=== PATIENT | male | born 1955 | race Caucasian/White ===

== ENCOUNTER 2024-02-12 12:11 | Emergency (ER) | payer BC, SELFPAY ==
[2024-02-12 12:14] VITALS: BP 162/82
[2024-02-12 12:50] LABS: % Basophils 0.6 % (0-2); % Eosinophils 2.8 % (0-6); % Immature Granulocytes 0.1 % (0-0.5); % Lymphocytes 22.4 % (20.5-51.1); % Monocytes 6.9 % (1.7-9.3); % Neutrophils 67.2 % (42.2-75.2); Absolute Eosinophils 0.2 10^3/uL (0-0.7); Absolute Lymphocytes 1.5 10^3/uL (1.2-3.4); Absolute Monocytes 0.5 10^3/uL (0.1-0.6); Absolute Neutrophils 4.6 10^3/uL (1.4-6.5); Hemoglobin 14.5 g/dL (13.0-18.0); Mean Corp Hgb Conc. 34.5 g/dL (33.0-37.0); Mean Corpuscular Hgb 30.6 pg (27.0-31.0); Mean Corpuscular Volume 88.6 fL (80.0-94.0); Nucleated Red Blood Cells % 0 % (-); Platelet Count 193 10^3/uL (130-400); Red Blood Cell Count 4.74 10^6/uL (4.70-6.10); Red Cell Dist. Width 12.6 % (11.5-14.5); White Blood Cell Count 6.8 10^3/uL (4.8-10.8)
[2024-02-12 12:54] LABS: ALT (SGPT) 45 U/L (0-50); AST (SGOT) 38 U/L (17-59); Albumin 4.5 g/dl (3.5-5.0); Alkaline Phosphatase 48 U/L (38-126); Blood Urea Nitrogen 20 mg/dl (9-20); Calcium 9.4 mg/dl (8.4-10.2); Carbon Dioxide 24 mmol/L (22-30); Chloride 106 mmol/L (98-107); Glucose 108 mg/dl (70-99); Potassium 4.6 mmol/L (3.5-5.1); Sodium 138 mmol/L (135-145); eGFR > 60.00
[2024-02-12 13:06] LABS: Troponin I < 0.012 ng/ml
[2024-02-12 13:24] VITALS: BP 131/77
--- NOTE | 2024-02-12 14:26 | ED.GENMED ---
History of Present Illness
General
Chief Complaint: Fatigue
Source: patient
Exam Limitations: none
Time Seen by Provider: 02/12/24 13:55
History of Present Illness
History of Present Illness:
68-year-old male presents with generalized fatigue palpitations shortness of breath. He notes a headache and generalized myalgias as well. Is been persistent over the past 4 days. He states he feels like he skips a beat every now and then. He
has a history of A-fib status post ablation x 2. He denies measurable fever or chills. No known rash or tick bite. He notes a good appetite. He may not be getting enough to drink.
Past History
Past History
ED Past Medical History: Arrthythmia
ED Past Surgical History: Cardiac (ablation)
Social History
Tobacco: Non-smoker
Alcohol: Occasional
Drug: None
Personal:
Living: with family
Employment: Employed
Family History
Family History: Hypertension; Negative Early CAD
Phy Exam
Physical Exam
Physical Exam:
General: Well-appearing male no acute respiratory distress
HEENT: Normocephalic atraumatic mucosa moist neck is supple TMs normal pupils equal round reactive to light
Heart: Regular rate and rhythm no murmurs
Lungs: Clear no wheeze or rales
Abdomen: Soft nontender nondistended no guarding rebound normal bowel sounds
Extremities: No cyanosis or edema
Neurologic exam: Alert and oriented x 3 no facial asymmetry no drift on exam finger-nose [id number] intact
Skin is warm no rash
Course
Orders/Labs/Results
Orders:
Orders
02/12/24 12:16
Electrocardiogram (*1) Urgent
Reason for Study: Fatigue / Weakness
02/12/24 12:17
EKG- Treatment ONCE
02/12/24 12:21
Complete Blood Count/With Diff Urgent
Comprehensive Metabolic Panel Urgent
Troponin I Urgent
02/12/24 14:23
CR Chest - 2 Views Urgent
Comment:
Reason For Exam: sob
02/12/24 14:24
Add On- LAB Urgent
Tests Added?: lyme progressive
Abnormal Lab Results
02/12/24
12:21
Glucose 108 H mg/dl
(70-99)
02/12/24 12:21
02/12/24 12:21
Vital Signs
Initial and Last Documented VS:
Initial Vital Signs
Temp Pulse Resp BP Pulse Ox
98.8 F 75 16 162/82 98
02/12/24 12:14 02/12/24 12:14 02/12/24 12:14 02/12/24 12:14 02/12/24 12:14
Last Documented Vital Signs
Temp Pulse Resp BP Pulse Ox
98.8 F 76 15 131/73 95
02/12/24 12:14 02/12/24 16:30 02/12/24 16:30 02/12/24 16:00 02/12/24 16:30
MDM/Problems Addressed
Differential Diagnosis Includes:
Fatigue and myalgias. Question viral illness versus dehydration versus volume depletion versus Lyme. He also notes palpitations. No arrhythmias noted on the monitor. Every now and then there is a premature beat on the monitor. Patient has had
symptoms for 4 days with occasional chest tightness. Troponin here is undetectable. No indication for repeat troponin given the duration of symptoms. No PE risk factors. Vital signs are stable.
Patient currently receiving IV fluids. Chest x-ray pending add Lyme test
*Critical Care Note
Total Time (30-74mins, 75-104mins- exclusive of procedures): Not Applicable
Update Note
Update Note:
Workup here essentially unremarkable other than some premature beats on the monitor. Chest x-ray clear Lyme test is pending. Objectively the premature beats on monitor have been absent since administration of IV fluids. Suspect possible volume
depletion. He did have some chest discomfort during the last 4 days with a negative troponin here will do chest pain follow-up. He will receive a call if his Lyme test is positive.
ED Attending Note
-
Portions of this chart may have been created with voice recognition software.� Occasional wrong word or��sound alike� substitutions may have occurred due to the inherent limitations of voice recognition software.
Discharge Plan
Departure
Patient Disposition: Home (Routine Discharge)
Date of Disposition: 02/12/24
Time of Disposition: 16:25
Patient with high blood pressure during this ER visit?: No
Discharge Problem:
Fatigue
Instructions: Fatigue (DC), Chest Pain CBC Follow Up
Prescriptions:
No Action
boron 6 mg Tablet
3 mg PO DAILY
zinc sulfate 25 mg zinc (110 mg) Tablet
2 mg PO DAILY
aspirin 81 mg Tablet,Delayed Release (Dr/Ec)
81 mg PO DAILY
calcium carbonate [Calcium 500] 500 mg calcium (1,250 mg) Tablet
700 mg PO DAILY
omeprazole 20 mg Capsule,Delayed Release(Dr/Ec)
20 mg PO DAILYPRN PRN (Reason: gerd)
glucosamine-chondroitin 500-400 mg Capsule
1 cap PO DAILY
Excedrin Migraine 250-250-65 mg Tablet
1 tab PO DAILYPRN PRN (Reason: headaches)
Burkett 3 Fish Oil 684-1,200 mg Capsule,Delayed Release(Dr/Ec)
1 cap PO DAILY
Thermotabs 287-180-15 mg Tablet
1 tab PO DAILY
cholecalciferol (vitamin D3) [Vitamin D3] 125 mcg (5,000 unit) Tablet
125 mcg PO DAILY
vitamin K2 40 mcg Tablet
100 mcg PO DAILY
magnesium oxide 300 mg magnesium Tablet
300 mg PO DAILY
E-Tuknwj-W-Cysteine Tablets 600 mg tablet
600 mg PO DAILY
Referrals:
Ronaldo Casanova MD [Family Provider] -
Interventions
Interventions:
*Risk Screen - Suicide Last Done: 02/12/24 13:35
*General Assessment Last Done: 02/12/24 13:35
*Neglect/Abuse Screening Last Done: 02/12/24 13:35
ED- Fall Risk Assessment Last Done: 02/12/24 17:07
*ED COVID-19 Vaccine History Last Done: 02/12/24 12:14
*Nursing Disposition Last Done: 02/12/24 17:07
Discharge Date and Time
Discharge Date/Time: 02/12/24 17:08
Print Language: MOHAWK
[2024-02-12 15:27] VITALS: BP 125/68
[2024-02-12 16:00] VITALS: BP 131/73
== END 2024-02-12 17:08 | disposition home or self-care (01) ==
LOC: EMR 12:11
PROVIDERS: Emergency Medicine; EMERGENCY PHYSICIAN Emergency Medicine; FAMILY PHYSICIAN Family Medicine; REFERRING PHYSICIAN Internal Medicine Cardiovascular Disease
DX: R53.83 Other fatigue (principal)
CPT/HCPCS: 99283; 71046; 80053; 84484; 85025; 93005

== ENCOUNTER 2024-05-10 16:16 | Inpatient (IN) | payer BC, SELFPAY ==
[2024-05-10] VITALS (18 sets, daily range): BP systolic 95–151; BP diastolic 64–86; BMI 29.7
[2024-05-10] MEDS: NSS 281 ML IV (13:45)
[2024-05-10] MEDS: HEPARIN 25000 UNITS/250 ML IV ×2 (14:01→22:39)
[2024-05-10] MEDS: NITROLINGUAL SPRAY 1 BOTTLE SL (14:34)
--- NOTE | 2024-05-10 14:34 | PTCARENOTE ---
Pt with 4/10 sharp right chest pain, BP 139/70, 2l nc applied, SL nitro spray given as ordered- see mar
--- NOTE | 2024-05-10 14:40 | PTCARENOTE ---
Pt resting with eyes closed. Arouses easily and reports relief of chest pain.
--- NOTE | 2024-05-10 14:44 | W.PN.CARDCBS ---
Today's Communication / Plan
-
Heparin gtt
PRN SL NTG
[facility] today with high risk PCI LAD
Echo in AM
Impression / Plan
-
This is the H&P summary.
H&P scanned into chart.
PCP: Ronaldo Casanova MD
CDY: Talha Contreras MD
HPI: Patient is a 69-year-old gentleman with history of AFib w/PVI at [facility] (2008), non obstructive CAD on cath (2003), HLD, GERD/Syed's Esophagus, FH CAD (dad had CABG in 60s, brother had stent in 50s), non smoker, social alcohol, active and walks
about 3 miles daily without issue.
Presented to [facility] with 2 week history burning chest pain/chest tightness across chest, progressively worse with increased episodes, associated with SOB but no palps/dizziness. Initial HS troponin 43 with peak at 79. EKG with anterior
ST-T wave changes.
Brought to the lab assistant on 05/10 and found to have calcified 95% ostial LAD lesion with mod non obstructive CAD in RCA.
Maintained on IV Heparin and transferred for high risk PCI involving possible atherectomy or lithotripsy with stenting.
In holding area, pt having 4/10 chest discomfort at rest with relief from SL NTG. The radial access site remains intact and maintained on a pressure bag, arterial BPs in the 140s.
[facility] 05/10/24-
Short LM with calcified distal LM
95% calcified ostial LAD 95%
20-30% distal LCx
20-30% ostial RCA, 40-50% prox and distal RCA
LVGram- anterior HK w/EF 50%
2D Echo 11/05/22- NLVSF, EF 55%, mild MR
IMPRESSION/PLAN:
USA/NSTEMI, peak HS trop 79
prior CAD, non obstructive and medically managed at cath 2003
now with progressive USA and 95% calcified ostial LAD during cath today
still having chest pain at rest and on heparin gtt, responsive to SL NTG
transferred for atherectomy/lithotripsy with stenting
already given aspirin with full dose load at [facility]
Noted iodine allergy but pt denies any reaction with prior caths, only with shrimp/shellfish (hives only, no anaphylaxis/edema)
He was dye prepped this morning, and we will hold off on repeating the prep for now.
Echo from 2022 noted- none recent or done at [facility]- will order for AM
plan pending cath results
cardiac rehab
followup with Dr. Contreras at discharge
HLD- some intolerance to rosuvastatin
taking low dose atorvastatin 5mg- increased to 40mg
will check lipid profile in AM
GERD/BE- PPI
PAF- prior ablation 2008 at [facility]
has had intermittent palps that were identified as NSR w/PACs after multiple Kardia recordings
no evidence of AF
he is not on OAC, but if AF recurs his [id number]=9 and would need anticoagulation
Progress Note - Cia Agent
Subjective
Date of Service: May 10, 2024
Objective
Vital Signs and I&O:
Vital Signs
Temp Pulse Resp BP Pulse Ox
97.6 F 65 19 139/70 98
05/10/24 14:05 05/10/24 14:30 05/10/24 14:30 05/10/24 14:34 05/10/24 14:30
Vital Signs
Temp Pulse Resp BP Pulse Ox
97.6 F 65 19 139/70 98
05/10/24 14:05 05/10/24 14:30 05/10/24 14:30 05/10/24 14:34 05/10/24 14:30
Intake & Output
05/08/24 05/09/24 05/10/24 05/11/24
06:59 06:59 06:59 06:59
Intake Total 300 / 300
Balance 300 / 300
Physical Exam
Physical Exam
AAOx3, MAEE 5/
S1 S2 no murmurs
CTA bilat, non labored
soft abd, + bs
right radial cath site with arterial sheath intact, on armboard, no bleeding/oozing at site, palpable pulse w/good cap refill.
sheath to pressure system
bilat extremities w/palpable distal pulses, no edema
[2024-05-10 16:30] LABS: ACT-LR - POC 364 Seconds (116-155)
--- NOTE | 2024-05-10 17:16 | CONSULT.CT ---
Consultation
-
Date/Time Consultation Requested: 05/10/241709
Date/Time Consultation Performed: 05/10/241714
Requesting Provider: Alonzo ALBARADO
Performing Provider: Mary Jo BROTHERS for Kaden ALBARADO
Reason for Consultation: CABG eval
Patient History
Physicians
Family Physician: Ronaldo Casanova MD
Outpatient Manager Casino: Talha Contreras MD
Inpatient Manager Casino: Zion Rosado MD
History of Present Illness
69-year-old male with past medical history significant for atrial fibrillation s/p PVI at [facility] in 2008, CAD, HLD, GERD/Syed's esophagus presented to [facility] with a 2-week history of burning chest pain and chest tightness associated with
shortness of breath. On Friday, he states that he had multiple episodes of 10 out of 10 chest pain until he finally called EMS. While he was in the ambulance they gave him 1 sublingual nitro where he found relief. He was transferred to [place]
[facility] for a left heart cath. Left heart cath revealed multivessel disease and CT surgery was consulted for surgical evaluation.
Past Medical History
Past Medical History: Arrhythmias (Atrial fibrillation), HTN, Hypercholesterolemia, UT and SOB
Past Surgical History
Past Surgical History: Orthopedic
Pulmonary vein isolation x2
Family History
Family Medical History: CAD (Father, and both brothers had CABGs)
Social History
Alcohol: Occasional (4/week)
Drug: None
Tobacco: Non-Smoker
Personal:
Living: With Spouse
Employment: Retired
Allergies
Allergy/AdvReac Type Severity Reaction Status Date / Time
iodine Allergy Hives Verified 05/10/24 13:31
shellfish derived Allergy Hives Verified 05/10/24 13:31
Home Medications
�Medication �Instructions �Recorded �Confirmed �Type
.Smartcal 1 tab PO DAILY 05/10/24 05/10/24 History
atorvastatin 10 mg tablet 5 mg PO DAILY 05/10/24 05/10/24 History
cholecalciferol (vitamin D3) 50 50 mcg PO DAILY 05/10/24 05/10/24 History
mcg (2,000 unit) capsule (Vitamin
D3)
omega-3 fatty acids-fish oil 684 3 cap PO DAILY 05/10/24 05/10/24 History
mg-1,200 mg capsule,delayed release
omeprazole 20 mg capsule,delayed 20 mg PO DAILY 05/10/24 05/10/24 History
release
pyridoxine (vitamin B6) 50 mg 50 mg PO DAILY 05/10/24 05/10/24 History
tablet
vitamin K2 90 mcg capsule 90 mcg PO DAILY 05/10/24 05/10/24 History
Review of Systems
-
History Source: Patient
General: Reports Fatigue
HEENT: Reports No Symptoms
Respiratory: Reports SOB
Cardiac: Reports Chest Pain and CAD
Abdomen/GI: Reports No Symptoms
: Reports No Symptoms
Musculoskeletal: Reports No Symptoms
Skin: Reports No Symptoms
Neurological: Reports No Symptoms
Vascular: Reports No Symptoms
Physical Exam
Vital Signs
Temp 97.6 F 05/10/24 14:05
Temp route: Temporal 05/10/24 14:05
Pulse 78 05/10/24 15:00
Resp Rate 19 05/10/24 14:30
Blood pressure 129/69 05/10/24 14:39
Blood pressure extremity used: Left upper arm 05/10/24 14:05
Position: Lying 05/10/24 14:05
MAP (cuff-Ky Monitor) 97 05/10/24 13:35
SaO2 94 05/10/24 15:00
Oxygen Mode of Delivery Room air 05/10/24 14:05
Can the patient verbally communicate their pain? Yes 05/10/24 14:39
Pain scale ratin 05/10/24 14:39
Arterial Systolic Pressure 139 05/10/24 15:00
Arterial Diastolic Pressure 74 05/10/24 15:00
MAP (G-Diwi-Mnpfsmx Monitor) 96 05/10/24 15:00
Actual Weight 93.8 kg 05/10/24 13:41
Body Mass Index (BMI) 29.7 05/10/24 13:41
Exam
General: Well Developed, Well Nourished and No Apparent Distress
HEENT: Normocephalic
Respiratory: Clear
Cardiac: S1/S2 and Regular Rhythm
GI: Soft and Non Tender
Rectal: Deferred by Provider
Skin: Warm and Dry
Neuro: AO x 3 and No Motor Deficits
Lymph: No Lymphadenopathy
Psych: Calm
Assessment / Plan
-
69-year-old male with past medical history listed above presents to [facility] from [facility] for a left heart cath. Left heart cath revealed multivessel disease and CT surgery was consulted for surgical evaluation.
#CAD
-Patient's case will be discussed with attending physician. Patient's tentative surgery date will be tomorrow May 11
-Routine preoperative cardiothoracic surgery orders will be initiated.
-STS risk stratification score will be calculated after preoperative testing is complete
-Continue nitroglycerin and heparin gtt per cardiology
--- NOTE | 2024-05-10 17:17 | ITS.CL.CATH ---
[facility] - Catheterization
Cardiac Catheterization
Procedure Report:
CARDIAC CATHETERIZATION REPORT
Date of Procedure: 05/10/2024
Referring: Oscar Middleton M.D.
INDICATION: Non-ST elevation myocardial infarction, ostial LAD disease.
PROCEDURE:
1. Coronary angiography.
2. Successful IVUS of the proximal circumflex and left main coronary artery.
3. Successful IFR of the 50% lesion in the origin of OM1.
4. Successful IFR of the 40% proximal RCA lesion.
ACCESS:
7 Bel[place]ian slender right radial artery.
CATHETERS:
1. 7 Belarusian XB 3.5 guiding catheter.
2. 6 Bel[place]ian JR4 guiding catheter .
HEMODYNAMIC DATA
Weight (kg): 93.8
AO (s/d/x, mmHg): 128/72/97
LV (s/x mmHg): Not obtained.
LEFT VENTRICULOGRAPHY: Not performed.
CORONARY ANGIOGRAPHY
Dominance: Right.
Left Main: Normal size, bifurcating vessel. There is a haziness in the distal left main at the origin of the left anterior descending artery that protrudes into the left main coronary artery.
LAD: Normal size vessel giving rise to 1 significant diagonal. There is a densely calcified, 90-95% lesion in the origin of the LAD which protrudes into the left main coronary artery.
Ramus: Congenitally absent.
Circumflex: Large size, nondominant vessel giving rise to 1 large obtuse marginal. This obtuse marginal subsequently splits into 3 daughter arteries. There is a 50% lesion in the proximal margin of OM1.
RCA: Normal size, dominant vessel. There is a 40% lesion in the proximal vessel.
INTERVENTION(S)
1. Successful IVUS of the proximal circumflex and left main coronary artery.
2. Successful IFR of the 50% proximal OM1 lesion demonstrating occlusive disease (IFR = 0.88).
3. Successful IFR of the 40% proximal RCA lesion demonstrating nonocclusive disease (IFR = 0.95).
Narrative:
The decision was made to perform intracoronary imaging. The 7 Belarusian XB 3.5 guiding catheter was advanced into the ascending aorta and seated in the left main coronary artery. Additional heparin was given to obtain an ACT greater than 250 seconds.
After advancing a power turn flex wire into the distal circumflex, an IVUS catheter was advanced through the guiding catheter and into the ostium of the left main coronary artery. Ring down was performed once the imaging crystal was no longer inside
of the guiding catheter. The IVUS catheter was advanced into the proximal circumflex. Intravascular ultrasound was performed in a retrograde fashion using a slow pullback. Intracoronary imaging demonstrated significant atherosclerotic disease in the
distal left main including protrusion of the ostial LAD lesion into the lumen of the left main. Minimal luminal area of the left main was 7.7 mm�.
At this point, I elected to consult with CT surgery given the bulky nature of the ostial LAD calcium and micro concern for significant plaque shift even with aggressive calcium debulking. In my opinion, there is simply no way that PCI of the ostial
LAD would not intrude on the left main coronary artery and cause significant plaque shift into the ostial circumflex artery, forcing percutaneous rescue of this large vessel. After discussing with Drs. Alfonso and Sera, the decision was made that
the patient would likely benefit from bypass rather than PCI given the ostial nature of the lesion as well as his relatively young age. The decision was made to perform physiologic testing on the circumflex and RCA lesions to clarify the extent of
bypass required and to formally consult the CT surgery service.
The IVUS catheter was removed. An iFR wire was zeroed outside of the body, then inserted into the guiding sheath. The wire was advanced and the transducer was normalized just outside of the guiding catheter tip. The wire was advanced into the mid
OM1, beyond the 50% lesion. Three iFR measurements were taken. The lesion was determined to be occlusive (0.88).
We then turned our attention to the RCA. The 7 Belarusian XB 3.5 guiding catheter was removed over a wire and exchanged for a(n) 6 Bel[place]ian JR4 guiding catheter. The guiding catheter was advanced into the ascending aorta and seated in the right coronary
artery. Additional heparin was given to obtain an ACT greater than 250 seconds. An iFR wire was zeroed outside of the body, then inserted into the guiding sheath. The wire was advanced and the transducer was normalized just outside of the guiding
catheter tip. The wire was advanced into the mid RCA. Three iFR measurements were taken. The lesion was determined to be nonocclusive (0.95).
The catheter was disengaged from the coronary and the IFR wire was removed. The catheter was removed over a standard J-wire.
Closure Device: Vascular band.
Radiation (mGy): 365.68
DAP (cm2.Gy): 33.5095
Fluoroscopy time (minutes): 9.7
Sedation time (minutes): 66
CONCLUSIONS
1. Right dominant circulation with a nonocclusive 40% lesion in the proximal RCA (IFR = 0.95), and occlusive 50% proximal OM1 lesion (IFR = 0.88) and a densely calcified, bulky, critical, 90-95% ostial LAD lesion with intrusion of the calcium into
the distal left main coronary artery (minimal luminal area = 7.7 mm�).
RECOMMENDATIONS:
1. Expectant management after cardiac catheterization via right radial approach.
2. Limited weight bearing on the right wrist for one week.
3. Consultation with CT surgery regarding optimal revascularization strategy.
4. Aggressive secondary prevention with high-dose, high potency statin.
5. If the patient were to develop recurrent chest pain, would treat with nitroglycerin drip.
6. If nitroglycerin drip does not relieve chest pain or if blood pressure will not tolerate, the patient should have an intra-aortic balloon pump placed emergently and CT surgery needs to be made aware.
Copy to: Oscar Middleton M.D., Ronaldo Casanova M.D., Osmani Contreras M.D.
Zion Rosado DO, FACC, FACP
[2024-05-10] MEDS: LIPITOR 80 MG PO (19:13)
[2024-05-10] MEDS: NITROGLYCERIN PREMIX 250 IV (19:13)
[2024-05-10] MEDS: FLUSH (NSS) 1 FLUSH IV (19:16)
[2024-05-10] MEDS: COLACE 100 MG PO (23:26)
[2024-05-11] VITALS (36 sets, daily range): BP systolic 48–156; BP diastolic 40–110; BMI 29.3
--- NOTE | 2024-05-11 00:41 | W.PN.CT ---
Assessment / Plan
-
Assessment:
-S/P Median sternotomy/CABG x 2 (TED to LAD, GSV to OM1)/Endoscopic harvest/prep of RLE GSV/ ELAA w/ 50mm AtriClip, by Dr. Alfonso, 05/11/24, pod#1
-Severe 2v/distal LM CAD
-NSTEMI (HS trop. peaked @ 79)
-USA
-LVEF 55%, Mild MR per echo 11/05/22
-PAF S/P ablation @ [facility]2008
-HLD
-Class 1 obesity (BMI 30)
-GERD/Syed's esophagus
-Acute postop blood loss/Anemia (stable without blood transfusion)
-Acute postop atelectasis
-Acute postop hypovolemia with subsequent hypervolemia
-Acute vasal vagal episode with SBP 50's
Plan:
-No major issues overnight. Hemodynamically and neurologically intact
-Successfully extubated on 05/11/24 @ 2330
-Weaned of Levophed gtt, remains on insulin gtt per protocol
-U/O since OR 920 mL
-Monitor chest tube output: 2 meds 100/100, R/L pleurals 80/80
-Cont. current meds (ASA, Lipitor, Amiodarone, Lopressor; will add Plavix for vein graft; will eventually add DOAC given PAF hx)
-Telemetry phase today once of insulin gtt
-D/C'd a-line and SLIC this AM @ 0530
-No swan
-D/C'd jarrett this AM @ 0600
-Maintain temporary PW (will cut before d/c home)
-Maintain cordis (will d/c on POD#3)
-Wean off of O2 as tolerated
-Encourage use of IS
-OOB into chair/Ambulate
Discussed patient care with: Cardiology, Nursing, Respiratory Therapy, Pharmacy and Care Team
Subjective
Procedure
S/P Median sternotomy/CABG x 2 (TED to LAD, GSV to OM1)/Endoscopic harvest/prep of RLE GSV/ ELAA w/ 50mm AtriClip, by Dr. Alfonso, 05/11/24
-
Date of Service: May 11, 2024
Pt c/o incisional pain, otherwise feels well
Objective Data
Vital Signs
Vital Signs
Temp Pulse Resp BP Pulse Ox
97.6 F 69 16 111/67 94
05/10/24 23:29 05/10/24 23:30 05/10/24 23:29 05/10/24 23:30 05/10/24 23:29
CT Intake/Output/Weight
05/10/24 05/10/24 05/11/24
06:59 18:59 06:59
Intake Total 300 / 560 260 / 560
Output Total 300 / 300
Balance 300 / 260 -40 / 260
SaO2: 94 (2L)
Physical Exam
-
General: Awake, Oriented and AOx3
Cardiovascular: Regular rate & rhythm, No Murmurs, No Rub and No Gallop
Respiratory: Decreased Breath Sounds (at bases, otherwise clear)
Sternum: Stable
Incision: Clean, Dry, Intact and Dressing Intact
Extremities: Other (+trace edema)
Data Reviewed
-
Lab Results: Results Reviewed
Medications: Active Meds Reviewed
Chest X-Ray: Report Reviewed and Image Reviewed
ECG: Report Reviewed and Image Reviewed
[2024-05-11 05:18] LABS: APTT 56.6 Sec (23.4-35.0)
[2024-05-11 05:22] LABS: Hematocrit 36.6 % (39.0-52.0); Mean Corp Hgb Conc. 35.5 g/dL (33.0-37.0); Mean Corpuscular Hgb 30.5 pg (27.0-31.0); Mean Corpuscular Volume 85.9 fL (80.0-94.0); Mean Platelet Volume 9.8 fL (7.4-10.4); Platelet Count 207 10^3/uL (130-400); Red Blood Cell Count 4.26 10^6/uL (4.70-6.10); Red Cell Dist. Width 12.8 % (11.5-14.5); White Blood Cell Count 10.1 10^3/uL (4.8-10.8)
[2024-05-11 05:49] LABS: ALT (SGPT) 43 U/L (0-50); AST (SGOT) 30 U/L (17-59); Albumin 3.8 g/dl (3.5-5.0); Alkaline Phosphatase 65 U/L (38-126); Blood Urea Nitrogen 17 mg/dl (9-20); Calcium 9.1 mg/dl (8.4-10.2); Carbon Dioxide 21 mmol/L (22-30); Chloride 106 mmol/L (98-107); Direct Bilirubin 0.1 mg/dl (0.0-0.4); Estimated Creatinine Clearance 73 ml/min; Glucose 105 mg/dl (70-99); HDL Cholesterol 48 mg/dl; LDL Cholesterol, Calculated 75 mg/dl; Sodium 137 mmol/L (135-145); Total Bilirubin 0.8 mg/dl (0.2-1.3); Total Cholesterol 166 mg/dl (50-199); Total Protein 5.8 g/dl (6.3-8.2); Triglyceride 215 mg/dl (10-149); Very Low Density Lipoprotein 43 mg/dl (0-30); eGFR > 60.00
--- NOTE | 2024-05-11 06:40 | PTCARENOTE ---
1900 pt c/o CP 12/02. Nitro gtt started. Pt reported pain free in the next 15 min and stayed pain free this shift. CHD bath completed. VSS. Safety measures in place
--- NOTE | 2024-05-11 06:49 | W.PN.UPDATE ---
Update Note
Progress Note Update
CARDIAC SURGERY ATTENDING:
It was my pleasure to meet with Mr. Alex Hoang this morning at his bedside. I have reviewed his cardiac catheterization imaging. He will benefit from surgical coronary revascularization. He has a history of atrial fibrillation status post
ablation, I would therefore also advocate for concurrent exclusion of his left atrial appendage. I anticipate CABG x 2-3 with CASTRO to LAD and greater saphenous vein to OM1. His RCA was nonflow limiting on IFR assessment which would argue against
bypass to this vessel, but I will discuss this further with my interventional cardiology colleague.
I had a long conversation with Mr. Hoang. We discussed his coronary pathology, the proposed operative interventions, the associated operative risks (including, but not limited to, , stroke, RI, arrhythmia, PNA, GIA/F, bleeding, and infection),
the expected in-hospital postprocedural course, and the expected outpatient recovery. All questions were answered to the best of my abilities. The patient is agreeable to proceed. He recorded our conversation for the benefit of his .
He has been scheduled for operative intervention this afternoon pending completion of his preoperative workup.
Thank you for the opportunity to participate in the care of this kind gentleman.
Gerardo Alfonso MD
[phone]
[2024-05-11] MEDS: LOW STRENGTH ASPIRIN 81 MG PO (07:49)
[2024-05-11] MEDS: PROTONIX PO (07:50)
[2024-05-11 09:29] LABS: Glycohemoglobin (HgbA1c) 5.2 % (4.0-5.6)
--- NOTE | 2024-05-11 09:31 | PTCARENOTE ---
Assumed care at 0700. Patient awake in chair, NPO except sips with meds. Heparin and nitro infusing, denies pain, VSS, call joiner in reach
--- NOTE | 2024-05-11 09:57 | CM ---
Reviewed chart. Met with Mr. Hoang to review discharge plans. He states prior to admission he resides with his spouse and his thirteen year old granddaughter in a two story home with two steps to enter. He states his son's family has moved in them
while he is renovating a old farm house. He states he has a full flight of steps to get to bedroom/full bathroom. He states he has a powder room on the first floor. He states prior to admission he was independent with ambulation and adls. He
states he does not have any DME in the home. He states he has a prescription plan and uses [email or web address]. He states his spouse works outside the home but his son will be home to assist in his care if needed. He has a wedding in [place] on
June 17, 2024 that he would like to go to. Medical work-up in progress. The discharge plan is to return home with his spouse and son and a home visit by the Cardiothoracic Transitional Care Nurse when medically stable.
We reviewed pre-op and post-op routines. We briefly reviewed the shower instructions. Also reviewed restrictions including sternal precautions and driving restrictions. Also discussed a home visit by the Cardiothoracic Transitional Care Nurse. He
is agreeable to a home visit. The plan is for CABG on Saturday, May 11, 2024.
--- NOTE | 2024-05-11 10:01 | W.PN.UPDATE ---
Update Note
Progress Note Update
Procedure Type:�Isolated CABG
PERIOPERATIVE OUTCOME ESTIMATE %
Operative Mortality 0.659%
Morbidity & Mortality 3.82%
Stroke 0.728%
Renal Failure 0.577%
Reoperation 1.68%
Prolonged Ventilation 1.84%
Deep Sternal Wound Infection 0.102%
Long Hospital Stay (>14 days) 1.82%
Short Hospital Stay (<6 days)* 67.5%
Clinical Summary
Planned Surgery: Isolated CABG, Urgent, First cardiovascular surgery
Demographics: 69 year old, White, male, 94kg, 178cm, BMI: 29.7 kg/m�
Lab Values: Creatinine: 1 mg/dL, Hematocrit: 36.6%, WBC Count: 10.1 10�/�L, Platelet Count: 481213 cells/�L
Substance Abuse: Never smoker, Alcohol use: 2-7 drinks/week
Risk Factors / Comorbidities: Hypertension, Family Hx of CAD
Cardiac Status: Ejection Fraction = 55%
Coronary Artery Disease: 2 vessels diseased, Proximal LAD Stenosis >=70%, Non-ST Elevation HI, HI: 8 to 21 Days
Valve Disease: Mild MR, Trivial/Trace TR
[2024-05-11 10:15] LABS: INR 1.11; PT 14.1 Sec (11.4-14.6)
--- NOTE | 2024-05-11 11:21 | PTCARENOTE ---
Patient shower with 4% CHG. Patient placed in CVOR bed.
[2024-05-11 12:12] LABS: INR 1.14; PT 14.5 Sec (11.4-14.6)
[2024-05-11 12:13] LABS: APTT 63.4 Sec (23.4-35.0)
--- NOTE | 2024-05-11 12:38 | W.PN.CD ---
Today's Communication / Plan
-
Chestpain free.
plan for CABG. Timing per CT surgery
Impression / Plan
-
This is the H&P summary.
H&P scanned into chart.
PCP: Ronaldo Casanova MD
CDY: Talha Contreras MD
69-year-old gentleman with history of AFib w/PVI at [facility] (2008), non obstructive CAD on cath (2003), HLD, GERD/Syed's Esophagus,
Presented to [facility] with 2 week history burning chest pain/chest tightness across chest, progressively worse with increased episodes, associated with SOB but no palps/dizziness. Initial HS troponin 43 with peak at 79. EKG with anterior
ST-T wave changes.
Brought to the flue dust laborer on 05/10 and found to have calcified 95% ostial LAD lesion with mod non obstructive CAD in RCA.
Maintained on IV Heparin and transferred for high risk PCI involving possible atherectomy or lithotripsy with stenting.
C 05/10/24-
Short LM with calcified distal LM
95% calcified ostial LAD 95%
20-30% distal LCx
20-30% ostial RCA, 40-50% prox and distal RCA
LVGram- anterior HK w/EF 50%
2D Echo 11/05/22- NLVSF, EF 55%, mild MR
IMPRESSION/PLAN:
USA/NSTEMI, peak HS trop 79
based on anatomy . CABG recommended and CT surgery consulted
CT sugery evaluation in progress
CAbg in afternoon 05/11/24
HLD- some intolerance to rosuvastatin
taking low dose atorvastatin 5mg- increased to 40mg
\\
GERD/BE- PPI
PAF- prior ablation 2008 at [facility]
has had intermittent palps that were identified as NSR w/PACs after multiple Kardia recordings
no evidence of AF
hmitor for afib post op
Physical Exam
Vital Signs/Labs
Vital Signs
Temp Pulse Resp BP Pulse Ox
98.2 F 80 16 118/74 94
05/11/24 11:47 05/11/24 11:45 05/11/24 11:47 05/11/24 11:23 05/11/24 11:47
05/10/24 05/11/24 05/12/24
06:59 06:59 06:59
Actual Weight 92.7 kg
05/11/24 04:55
05/11/24 04:55
PT 14.5 Sec (11.4-14.6) 05/11/24 11:44
INR 1.14 05/11/24 11:44
APTT 63.4 Sec (23.4-35.0) H 05/11/24 11:44
APTT Cancelled 05/11/24 11:44
Triglycerides 215 mg/dl (10-149) H 05/11/24 04:55
LDL Cholesterol, Calc 75 mg/dl 05/11/24 04:55
VLDL Cholesterol, Calc 43 mg/dl (0-30) H 05/11/24 04:55
HDL Cholesterol 48 mg/dl 05/11/24 04:55
Physical Exam
Constitutional: No acute distress
Cardiovascular: Rhythm & rate is regular
GI: Soft
Neuro/Psych: Alert
Other: Cath Site (right radil fine)
Data Reviewed
-
Date of Service: May 11, 2024
Medical Decision Making: Reviewed Test Results
X-Ray/CT/US/MRI/NUC/PET: Report Reviewed by me
Medical Tests (PFT, Pathology etc): Report Reviewed by me
[2024-05-11] MEDS: BACTROBAN 2% OINTMENT 1 APPLIC NASAL ×2 (13:20→20:44)
[2024-05-11] MEDS: PROTONIX 40 MG PO (13:21)
[2024-05-11] MEDS: LOPRESSOR 25 MG PO (13:21)
[2024-05-11] MEDS: MAGNESIUM OXIDE 500 MG PO (13:21)
--- NOTE | 2024-05-11 13:29 | PTCARENOTE ---
2% CHG wipes completed, meds given with a sip of water.
--- NOTE | 2024-05-11 13:57 | PTCARENOTE ---
Patient transported to the OR. Heparin stopped, Nitroglycerin at 5mcg/min infusing.
[2024-05-11 14:50] LABS: ACT+ - POC 93 Seconds (82-134)
[2024-05-11 15:07] LABS: Urine Albumin Negative (Neg - Trace); Urine Bilirubin Negative (Negative); Urine Character Clear (Clear); Urine Color Yellow; Urine Glucose Negative (Negative); Urine Ketone Negative (Negative); Urine Leukocyte Negative (Negative); Urine Nitrite Negative (Negative); Urine Occult Blood Negative (Negative); Urine Specific Gravity 1.015 (<1.030); Urine Urobilinogen Negative (Neg - 1+); Urine pH 6.5 (5.0-9.0)
--- NOTE | 2024-05-11 15:07 | CM ---
Chart reviewed. Patient is in the OR today. Patient is independent of ADLS, lives with his and granddaughter, also his son and family are currently staying with the patient in a 2 STH, 2 YASMANI, 0 DME. Plan is for the patient to return home
with CT Transitional RN. CM to follow
[2024-05-11 16:37] LABS: ACT+ - POC 455 Seconds (82-134)
[2024-05-11 16:55] LABS: B.E. - POC -2.2 mmol/L; Glucose - POC 102 mg/dl (70-99); HCO3 - POC 23 mmol/L (21-29); Hematocrit - POC 35 % PCV (42-52); Hemodilution- POC No; Hemoglobin Calculated - POC 11.7; Ionized Calcium - POC 1.17 mmol/L (1.12-1.27); O2 Saturation %Calculated-POC 99.8 5 (92-96); PCO2 - POC 39 mmHg (35-45); PO2 - POC 224 mmHg (80-100); POC Comment PRE; Potassium - POC 3.8 mmol/L (3.6-5.0); Sodium - POC 140 mmol/L (135-145); pH - POC 7.38 (7.35-7.45)
[2024-05-11 17:06] LABS: ACT+ - POC 402 Seconds (82-134)
[2024-05-11 17:23] LABS: ACT+ - POC 494 Seconds (82-134)
[2024-05-11 17:46] LABS: B.E. - POC 1.1 mmol/L; Glucose - POC 134 mg/dl (70-99); HCO3 - POC 26 mmol/L (21-29); Hematocrit - POC 32 % PCV (42-52); Hemodilution- POC Yes; Hemoglobin Calculated - POC 10.8; Ionized Calcium - POC 1.03 mmol/L (1.12-1.27); O2 Saturation %Calculated-POC 99.9 5 (92-96); PCO2 - POC 41 mmHg (35-45); PO2 - POC 265 mmHg (80-100); POC Comment CPB; Potassium - POC 5.1 mmol/L (3.6-5.0); Sodium - POC 137 mmol/L (135-145); pH - POC 7.41 (7.35-7.45)
[2024-05-11 18:12] LABS: ACT+ - POC 454 Seconds (82-134)
[2024-05-11 18:14] LABS: B.E. - POC 0.2 mmol/L; Glucose - POC 160 mg/dl (70-99); HCO3 - POC 25 mmol/L (21-29); Hematocrit - POC 34 % PCV (42-52); Hemodilution- POC Yes; Hemoglobin Calculated - POC 11.4; Ionized Calcium - POC 1.08 mmol/L (1.12-1.27); O2 Saturation %Calculated-POC 99.9 5 (92-96); PCO2 - POC 42 mmHg (35-45); PO2 - POC 285 mmHg (80-100); POC Comment REWARM; Potassium - POC 5.2 mmol/L (3.6-5.0); Sodium - POC 139 mmol/L (135-145); pH - POC 7.39 (7.35-7.45)
[2024-05-11 18:20] LABS: ACT+ - POC 112 Seconds (82-134)
[2024-05-11 18:41] LABS: B.E. - POC -2.8 mmol/L; Glucose - POC 143 mg/dl (70-99); HCO3 - POC 22 mmol/L (21-29); Hematocrit - POC 31 % PCV (42-52); Hemodilution- POC Yes; Hemoglobin Calculated - POC 10.7; Ionized Calcium - POC 1.36 mmol/L (1.12-1.27); PCO2 - POC 36 mmHg (35-45); PO2 - POC 378 mmHg (80-100); POC Comment POST; Potassium - POC 4.7 mmol/L (3.6-5.0); Sodium - POC 139 mmol/L (135-145); pH - POC 7.39 (7.35-7.45)
--- NOTE | 2024-05-11 19:12 | W.IMMPOSTOP ---
Surgical Immed Post Op Note
-
[id number]
CARDIAC SURGERY OPERATIVE NOTE:
Preoperative Dx:
Severe 2V CAD including ostial LAD Dz w/ NSTEMI
Hx of AF
Postoperative Dx:
Same
Procedures:
1) Median sternotomy
2) Endoscopic harvest/prep of RLE GSV
3) Takedown of TED (narrow pedicle)
4) CABG x 2 (TED to LAD, GSV to OM1)
5) ELAA w/ 50mm AtriClip
Surgeon:
Gerardo Alfonso M.D.
Funeral Home Manager:
Samantha Wild P.A.-C.; endoscopic harvest/prep of RLE GSV; sales support assistant throughout
Anesthesia:
Chuy Sanchez M.D. and Carolyn CamachoN.A.
Perfusion:
Robbie Paredes C.C.P.; XC: 65min, CPB: 74min
Findings:
1) TED was a very healthy vessel w/ extremely brisk blood flow; ELD 2.75mm
2) GSV was a healthy conduit w/ ELD 3.0mm; healthy agosto
3) LAD was visible on the epicardial surface, mild scattered calcifications, ELD at midpoint anatomosis 2.00mm (anastomosis performed over 1.5mm shunt)
4) OM1 was visible on the epicardial surface, minor scattered calcifications, ELD 2.50mm
5) HIWOT was of windsock morphology w/ wide base - closed at base w/ 50mm AtriClip - confirmed w/ ELENA assessment
6) Pt. w/ christianity of NSR w/ cross-clamp in place w/ only TED-to-LAD flow
7) Excellent flow in GSV to OM1 on transit-time U/S flow probe assessment
Complications:
None
Transfusions:
None
Implants:
CT x 4 (B/L pleural, inferior mediastinal, superior mediastinal)
Sternal wires x 8
Sternal 'X' plate and 8 - 14mm screws
Condition:
71 sinus w/ isoelectric STs; 123/80; CVP 18, 98%
GTTS: levophed 4, precedex 0.5, insulin 1
Stable/guarded to CVICU
[2024-05-11] MEDS: NEURONTIN PO ×2 (19:19→21:22)
[2024-05-11] MEDS: TYLENOL PO ×2 (19:19→21:22)
[2024-05-11] MEDS: PACERONE PO ×2 (19:19→21:22)
[2024-05-11] MEDS: LIPITOR PO (19:19)
[2024-05-11 19:57] LABS: Glucose - Point of Care 150 mg/dl (70-99)
[2024-05-11 20:00] LABS: B.E. -2.5 mmol/L; HCO3 22.5 mmol/L (21-28); Ionized Calcium 1.14 mMOL/L (1.15-1.33); O2 Saturation % 99.7 % (94-98); PCO2 39 mmHg (35-48); PO2 263 mmHg (83-108); Potassium 4.2 mMOL/L (3.5-5.1); Sodium 135 mMOL/L (136-145); pH 7.37 (7.35-7.45)
[2024-05-11 20:02] LABS: Hematocrit 33.5 % (39.0-52.0); Hemoglobin 12.1 g/dL (13.0-18.0); Platelet Count 192 10^3/uL (130-400)
[2024-05-11 20:03] LABS: Mixed Venous O2 Saturation 81.1 %
[2024-05-11] MEDS: VERSED 0.5 MG IV (20:15)
--- NOTE | 2024-05-11 20:15 | PTCARENOTE ---
Pt to room 2260 from CVOR ~1945. Pt intubated and sedated upon arrival to CVICU. SR on the monitor. HR 80s. BP 100s/60s. CVP ~4-10. Palpable pulses throughout. No edema. Pt intubated w/ ETT #8, 24 cm @ right lip. Pt at 100% FiO2. POX 98%. See
worklist for full vent settings. Lung sounds audible throughout. Mediastinal CTx2 and R/L pleural CT to -20 suction, no tidaling or air-leak noted at this time, and output WNL. Pt abdomen round/soft. Hypoactive BS. Temperature sensing Maharaj catheter
CDI and draining yellow urine. Sternal Aquacel CDI. Right leg SVG site intact and wrapped in JACQUELINE bandage. Right groin puncture site approximated and DIRECTOR HAIR. CT dressing CDI. Right IJ cordis w/ slick CDI. Left PIV and left radial arterial line CDI. CVP
and a-line leveled, zeroed, and flushed. Insulin, levo, and Precedex infusing upon arrival to CVICU. Ordered labs drawn and sent. EKG obtained. Maharaj care completed. Mouth care completed. See worklist for full nursing assessment and interventions.
[2024-05-11 20:16] LABS: INR 1.27; PT 15.7 Sec (11.4-14.6)
[2024-05-11 20:18] LABS: Blood Urea Nitrogen 15 mg/dl (9-20); Estimated Creatinine Clearance 73 ml/min; Glucose 151 mg/dl (70-99); Magnesium 2.6 mg/dl (1.6-2.3)
[2024-05-11] MEDS: ANCEF 10 IV ×2 (20:20)
[2024-05-11] MEDS: NSS 500 IV (20:20)
[2024-05-11] MEDS: SENOKOT-S PO (20:44)
[2024-05-11] MEDS: CALCIUM CHLORIDE 10% SYRINGE 500 MG IV ×4 (20:45→20:48)
--- NOTE | 2024-05-11 21:00 | PTCARENOTE ---
Pt beginning to slowly wake up. Pt vagaled w/ BP dropping to the 50-60s/40s. CTPA at bedside. Pt administered a total of 2 g calcium chloride and 1 amp sodium bicarb - see OCT. Levo titrated up. BP began to increase and stabilize. Levo titrated back
down. HR remained in the 80s, and POX remained between 94-97% throughout vagal episode. Respiratory at the beside. FiO2 titrated to 40%.
[2024-05-11 21:04] LABS: Glucose - Point of Care 148 mg/dl (70-99)
[2024-05-11 22:07] LABS: Glucose - Point of Care 125 mg/dl (70-99)
[2024-05-11] MEDS: SODIUM BICARBONATE 50 MEQ IV (22:41)
[2024-05-11 22:59] LABS: Glucose - Point of Care 117 mg/dl (70-99)
[2024-05-11 23:18] LABS: B.E. -0.5 mmol/L; HCO3 23.1 mmol/L (21-28); Ionized Calcium 1.35 mMOL/L (1.15-1.33); O2 Saturation % 99.1 % (94-98); PCO2 34 mmHg (35-48); PO2 118 mmHg (83-108); Potassium 4.3 mMOL/L (3.5-5.1); Sodium 136 mMOL/L (136-145); pH 7.44 (7.35-7.45)
[2024-05-11 23:21] LABS: Hematocrit 33.7 % (39.0-52.0); Hemoglobin 12.5 g/dL (13.0-18.0); Platelet Count 217 10^3/uL (130-400)
[2024-05-11] MEDS: OFIRMEV 100 IV (23:49)
--- NOTE | 2024-05-11 23:58 | PTCARENOTE ---
Pt placed on CPAP by respiratory therapy ~ 2240. ABG drawn and sent ~2315. CTPA gave order to extubate. Pt extubated by respiratory therapy to 6 L NC. POX 98%. IS 1500. Pt AAOx3. CARTER. Following commands appropriately.
[2024-05-12] VITALS (45 sets, daily range): BP systolic 80–135; BP diastolic 56–82; PULSE 94; O2SAT 93–95; BMI 29.8; BMI 29.5
[2024-05-12 00:08] LABS: Glucose - Point of Care 91 mg/dl (70-99)
[2024-05-12] MEDS: ANCEF 5 IV ×3 (00:13→17:26)
[2024-05-12] MEDS: LOW STRENGTH ASPIRIN 81 MG PO ×2 (00:13→08:51)
[2024-05-12] MEDS: NOVOLIN R INSULIN INFUSION 100 IV (00:29)
[2024-05-12] MEDS: DILAUDID 0.25 MG IV ×2 (00:36→20:31)
--- NOTE | 2024-05-12 00:37 | PTCARENOTE ---
Addendum entered by Halley King RN 05/12/24 04:10:
Levo infusing per protocol. Glycemic protocol followed.
Original Note:
Pt reassessed. Pt AAOx3. Pt SR on the tele monitor. HR 90s. BP 110's/60s. CVP ~ 1-4. Pt on 6 L NC. POX 99%. Mediastinal CTx2 and R/L pleural CT to -20 suction, no airleak or tidaling noted at this time, and output WNL. Deep breathing encouraged.
Maharaj catheter CDI and draining yellow urine. All surgical sites stable. SLICC (w/ CVP) and left radial arterial line maintained. All lines leveled, zeroed, and flushed. Pt repositioned in bed. See MAR for pain medication administration. Call joiner
within reach.
[2024-05-12] MEDS: ZOFRAN 4 MG IV (00:49)
[2024-05-12] MEDS: DILAUDID 0.5 MG IV (03:27)
[2024-05-12 03:42] LABS: Ionized Calcium 1.22 mMOL/L (1.15-1.33)
[2024-05-12 03:45] LABS: B.E. -2.1 mmol/L; HCO3 22.3 mmol/L (21-28); Hematocrit 32.1 % (39.0-52.0); Hemoglobin 11.7 g/dL (13.0-18.0); Ionized Calcium 1.24 mMOL/L (1.15-1.33); Mean Corp Hgb Conc. 36.4 g/dL (33.0-37.0); Mean Corpuscular Hgb 31.1 pg (27.0-31.0); Mean Corpuscular Volume 85.4 fL (80.0-94.0); Mean Platelet Volume 9.7 fL (7.4-10.4); O2 Saturation % 99.1 % (94-98); O2 Therapy 2L; PCO2 36 mmHg (35-48); PO2 103 mmHg (83-108); Platelet Count 185 10^3/uL (130-400); Red Blood Cell Count 3.76 10^6/uL (4.70-6.10); Red Cell Dist. Width 12.5 % (11.5-14.5); White Blood Cell Count 16.9 10^3/uL (4.8-10.8)
[2024-05-12 03:58] LABS: Glucose - Point of Care 115 mg/dl (70-99)
[2024-05-12] MEDS: SODIUM BICARBONATE 50 MEQ IV (04:15)
[2024-05-12 04:19] LABS: Blood Urea Nitrogen 17 mg/dl (9-20); Calcium 9.3 mg/dl (8.4-10.2); Carbon Dioxide 23 mmol/L (22-30); Chloride 106 mmol/L (98-107); Estimated Creatinine Clearance 66 ml/min; Glucose 114 mg/dl (70-99); Magnesium 2.2 mg/dl (1.6-2.3); Potassium 4.2 mmol/L (3.5-5.1); Sodium 140 mmol/L (135-145); eGFR > 60.00
--- NOTE | 2024-05-12 04:24 | PTCARENOTE ---
Pt reassessed. Remains SR on the tele monitor. HR 90s. BP 90-100s/60s. Levo infusing per protocol. CVP ~2-6. Pt on 2 L NC. POX 96%. CT assessment unchanged from previous. Maharaj catheter CDI and draining yellow urine. All surgical sites stable. SLICC
and left radial a-line maintained. All lines leveled, zeroed, and flushed. Glycemic protocol followed. Pt c/o pain - see OCT. Labs drawn and sent. EKG obtained. Sodium bicarb administered as ordered. Call joiner within reach.
--- NOTE | 2024-05-12 05:14 | DOWNTIME ---
There was a [employer] Client Manager Floral Downtime on 05/12/2024 from 0100 to 05/12/2024 at 0300. Downtime documentation of patient's care, including medication administrations, has been reconciled in the electronic record per guidelines. Refer to the
patient's paper chart under the miscellaneous tab to see printed paper medication records and downtime forms.
[2024-05-12 06:04] LABS: Glucose - Point of Care 127 mg/dl (70-99)
[2024-05-12] MEDS: TYLENOL 1000 MG PO ×3 (06:04→22:30)
--- NOTE | 2024-05-12 06:18 | W.PN.CT ---
Addendum entered and electronically signed by Gerardo Alfonso MD 05/12/24 07:14:
I saw and examined the patient.
The PA's note was reviewed and I agree with the note.
Comment:
Postop day #1 status post CABG x 2
Doing well, successfully extubated at 2330 hrs.
De-line this morning.
Maintain chest tubes today
Maintain Farias catheter until out of bed
Aspirin/Plavix
Out of bed, I-S, ambulate later
Original Note:
Today's Communication / Plan
-
Plan:
-No major issues overnight. Hemodynamically and neurologically intact
-Successfully extubated on 05/11/24 @ 2330
-Weaned of Levophed gtt, remains on insulin gtt per protocol
-U/O since OR 920 mL
-Monitor chest tube output: 2 meds 100/100, R/L pleurals 80/80
-Cont. current meds (ASA, Lipitor, Amiodarone, Lopressor; will add Plavix for vein graft; will eventually add DOAC given PAF hx)
-Telemetry phase today once of insulin gtt
-D/C'd a-line and SLIC this AM @ 0615
-No swan
-D/C'd farias later today
-Maintain temporary PW (will cut before d/c home)
-Maintain cordis (will d/c on POD#3)
-Wean off of O2 as tolerated
-Encourage use of IS
-OOB into chair/Ambulate
Assessment / Plan
-
Assessment:
-S/P Median sternotomy/CABG x 2 (TED to LAD, GSV to OM1)/Endoscopic harvest/prep of RLE GSV/ ELAA w/ 50mm AtriClip, by Dr. Alfonso, 05/11/24, pod#1
-Severe 2v/distal LM CAD
-NSTEMI (HS trop. peaked @ 79)
-USA
-LVEF 55%, Mild MR per echo 11/05/22
-PAF S/P ablation @ [facility]2008
-HLD
-Class 1 obesity (BMI 30)
-GERD/Syed's esophagus
-Acute postop blood loss/Anemia (stable without blood transfusion)
-Acute postop atelectasis
-Acute postop hypovolemia with subsequent hypervolemia
-Acute vasal vagal episode with SBP 50's
Discussed patient care with: Cardiology, Nursing, Respiratory Therapy, Pharmacy and Care Team
Subjective
Procedure
S/P Median sternotomy/CABG x 2 (TED to LAD, GSV to OM1)/Endoscopic harvest/prep of RLE GSV/ ELAA w/ 50mm AtriClip, by Dr. Alfonso, 05/11/24
-
Date of Service: May 12, 2024
C/o incisional pain, otherwise feels well
Objective Data
-
Lab Results
05/12/24 03:34
05/12/24 03:34
PT 15.7 Sec (11.4-14.6) H 05/11/24 19:52
INR 1.27 05/11/24 19:52
APTT 29.0 Sec (23.4-35.0) 05/11/24 19:52
Vital Signs
Vital Signs
Temp Pulse Resp BP Pulse Ox
99.9 F 96 18 104/71 97
05/12/24 06:00 05/12/24 06:00 05/12/24 06:00 05/12/24 06:00 05/12/24 06:00
CT Intake/Output/Weight
05/11/24 05/11/24 05/12/24
06:59 18:59 06:59
Intake Total 260 / 560 381.5 / 381.5
Output Total 600 / 600 1195 / 1195
Balance -340 / -40 -813.5 / -813.5
SaO2: 97 (2L)
Physical Exam
-
General: Awake, Oriented and AOx3
Cardiovascular: Regular rate & rhythm, No Murmurs, No Rub and No Gallop
Respiratory: Decreased Breath Sounds (at bases, otherwise clear)
Sternum: Stable
Incision: Clean, Dry, Intact and Dressing Intact
Extremities: No Edema
Data Reviewed
-
Lab Results: Results Reviewed
Medications: Active Meds Reviewed
Chest X-Ray: Report Reviewed and Image Reviewed
ECG: Report Reviewed and Image Reviewed
--- NOTE | 2024-05-12 06:43 | PTCARENOTE ---
Pt left radial arterial line/SLICC dc'd and farias remains in place per CTPA.
--- NOTE | 2024-05-12 07:18 | PTCARENOTE ---
Attempted to get pt OOB. BP 80/56 while sitting at edge of bed. Pt laid back down. BP up to 120/74. Bed weight obtained.
--- NOTE | 2024-05-12 07:37 | CON.INTV ---
Consultation
Consultation Request
Date/Time Consultation Requested: 05/12/2024-7 AM
Date/Time Consultation Performed: 05/12/2024-7:30 AM
Requesting Provider: Cardiovascular surgery
Performing Provider: Dr. Branch
Reason for Consultation: Postop ventilator/critical care management
Medical History
-
Chief Complaint: CAD
History of Present Illness:
69-year-old male with a history of atrial fibrillation status post PVI at [facility] in 2008, hyperlipidemia, GERD, CAD, and untreated YVONNE. History of 2 weeks of chest burning and tightness associate with shortness of breath who underwent cardiac
catheterization found to have significant CAD and underwent CABG-traffic operations manager consulted for postoperative ventilator/critical care management 05/12/2024. Patient was seen postoperatively. He was successfully extubated. He has some incisional pain.
He has mild shortness of breath. He offers no complaints of pleurisy, productive cough, chest congestion, abdominal pain, nausea, vomiting, leg swelling or weakness.
Past Medical History
Past Medical History: None (Hypertension. Hyperlipidemia. Atrial fibrillation/PVI-[facility] 2008. CAD. GERD. Syed's esophagus. Orthopedic surgery.)
Social History
Tobacco: Non-smoker
Alcohol: Occasional
Drug: None
Personal:
Living: With Family
Occupational Exposures: No known asbestos exposure
Environmental Exposures: No known tuberculosis exposure
Family History
Family History: Other (Father and both brothers with CAD)
Allergies / Home Medications
Allergies
Allergy/AdvReac Type Severity Reaction Status Date / Time
iodine Allergy Hives Verified 05/10/24 13:31
shellfish derived Allergy Hives Verified 05/10/24 13:31
Home Medications
�Medication �Instructions �Recorded �Confirmed �Last Taken �Type
.Smartcal 1 tab PO DAILY 05/10/24 05/10/24 05/06/24 08:00 History
atorvastatin 10 mg tablet 5 mg PO DAILY 05/10/24 05/10/24 05/05/24 08:00 History
cholecalciferol (vitamin D3) 50 50 mcg PO DAILY 05/10/24 05/10/24 05/03/24 08:00 History
mcg (2,000 unit) capsule (Vitamin
D3)
omega-3 fatty acids-fish oil 684 3 cap PO DAILY 05/10/24 05/10/24 05/06/24 08:00 History
mg-1,200 mg capsule,delayed release
omeprazole 20 mg capsule,delayed 20 mg PO DAILY 05/10/24 05/10/24 05/06/24 08:00 History
release
pyridoxine (vitamin B6) 50 mg 50 mg PO DAILY 05/10/24 05/10/24 05/06/24 08:00 History
tablet
vitamin K2 90 mcg capsule 90 mcg PO DAILY 05/10/24 05/10/24 05/06/24 08:00 History
Review of Systems
-
Unable to Obtain full review of systems at this time due to: Other (Per HPI)
Vitals / Labs / Diagnostic Testing
Vital Signs
Temp Pulse Resp BP Pulse Ox
99.9 F 96 16 120/74 96
05/12/24 06:00 05/12/24 07:11 05/12/24 07:00 05/12/24 07:11 05/12/24 07:00
Lab Data
05/12/24 03:34
05/12/24 03:34
Laboratory Results
05/11/24 05/11/24 05/11/24
04:55 11:44 11:44
PT 14.1 14.5
INR 1.11 1.14
APTT 63.4 H Cancelled
pH
pCO2
pO2
HCO3
O2 Delivery Level
05/11/24 05/11/24 05/11/24
17:30 19:52 23:13
PT 15.7 H
INR 1.27
APTT Cancelled 29.0
pH 7.37 7.44
pCO2 39 34 L
pO2 263 H 118 H
HCO3 22.5 23.1
O2 Delivery Level
05/12/24
03:34
PT
INR
APTT
pH 7.40
pCO2 36
pO2 103
HCO3 22.3
O2 Delivery Level 2l
Diagnostic Testing:
Physical Exam
-
Exam:
Well-nourished and well-developed in no apparent distress
HEENT-atraumatic, normocephalic
Neck-supple, no JVD, no bruit
Heart-regular rate and rhythm-no murmurs, rubs or gallops
Chest-clear to auscultation, no wheezes, crackles
Back-no tenderness
Abdomen-soft, nontender, nondistended, no hepatosplenomegaly
Extremities-no cyanosis, clubbing, edema and good peripheral pulses
Integument-intact, no rashes, lesions or ecchymosis
Neurology-alert and oriented, nonfocal motor and sensory exam
Assessment
-
69-year-old male with a history of atrial fibrillation status post PVI at [facility] in 2008, hyperlipidemia, GERD, CAD, and untreated YVONNE. History of 2 weeks of chest burning and tightness associate with shortness of breath who underwent cardiac
catheterization found to have significant CAD and underwent CABG-traffic operations manager consulted for postoperative ventilator/critical care management 05/12/2024.
CAD-status post CABG-Dr. Alfonso 05/11/2024
NSTEMI
Leukocytosis-WBC 16.9
Mild normocytic anemia-hemoglobin 11.7
Mild hyperglycemia
Conditions present prior to admission:
Hypertension.
Hyperlipidemia.
Atrial fibrillation/PVI-[facility] 2008.
CAD.
GERD.
Syed's esophagus.
Fatty liver
Orthopedic surgery.
Plan
Tolerated extubation
Wean FiO2
Encourage incentive spirometry
Increase activity
Aspiration precautions
Pressors and inotropes as needed
Continue to monitor chest tube output
Follow hemoglobin
Continue to follow platelet count and coags
Transfuse blood product as needed
CT surgery following chest tubes as well
Follow blood sugar
Insulin supplementation continues as needed
Early nutrition
Early mobilization
DVT prophylaxis
Patient with a history of obstructive sleep apnea not on CPAP therapy diagnosed years ago-still has significant symptoms-recommend outpatient sleep disorders/sleep study evaluation
If patient to be transferred to telemetry phase-call pulmonary if respiratory issues arise
Critical care statement: A total of 50 minutes of critical care time was provided for this patient today. This includes management of unstable vital signs, evaluation of the patient at bedside, reviewing the patient's pertinent medical records
including radiographs, pressor management, microbiology, laboratory evaluations, and discussion with primary team, consultants, pharmacy, nutrition, physical therapy, case management, charge nurse, critical care nursing, and respiratory therapy.
Diagnostic data:
Chest x-ray 02/12/2024-NAD
Chest x-ray 05/11/2024-postoperative changes with no pneumothorax, ET tube [address] chest 05/10/2024-no active cardiopulmonary disease, atherosclerosis, minimal scarring versus dependent atelectasis posterior lung bases, nonobstructing calculus upper pole of both kidneys, diffuse fatty infiltration of the liver
LHC 05/10/24-
Short LM with calcified distal LM
95% calcified ostial LAD 95%
20-30% distal LCx
20-30% ostial RCA, 40-50% prox and distal RCA
LVGram- anterior HK w/EF 50%
Echocardiogram 05/11/2024-EF 55-60%, no valvular disease
Data Reviewed
-
EKG: Report reviewed by me
Radiology: Report reviewed by me
CT Scan: Report reviewed by me
Medical Tests (Nuc Med, Echo etc): Report reviewed by me
Labs: Labs reviewed by me
Old Records: Reviewed
Critical Care Time (in minutes): 50
[2024-05-12 07:48] LABS: Glucose - Point of Care 113 mg/dl (70-99)
[2024-05-12] MEDS: LR 250 ML IV ×2 (07:52→10:27)
--- NOTE | 2024-05-12 07:52 | W.PN.ANS.POP ---
Anesthesia Post Operative
- Anesthesia Post Op Note
Vital Signs Stable-See Nursing Note: Yes
Airway Patent: Yes
Adequate Pain Control: Yes
Change in Mental Status: No
Current Postoperative Nausea & Vomiting: No
Anesthesia Complications: No
General Anesthetic Recall: No
Unplanned Admission: No
Post Op Hydration Adequate: Yes
[2024-05-12 07:57] LABS: Glucose - Point of Care 123 mg/dl (70-99)
--- NOTE | 2024-05-12 08:00 | PTCARENOTE ---
Received pt from appointment manager RN; pt AAOx3 and resting comfortably in bed; NSR on monitor; SBPs 80s, R Mary Jo CV INSURANCE TERRITORY MANAGER in room and LR 250ml Bolus given; RIJ Cordis and PIV x1 patent; Insulin drip infusing per protocol see flow sheet for details; Lungs
diminished; CT x4 to -20 wall suction no crepitus and no air leak noted; IS to 1000; hypoactive bowel sounds; Maharaj catheter draining yellow urine; palpable pulses throughout; +1 generalized edema noted; surgical dressing C/D/I; see nursing
documentation for further details.
[2024-05-12] MEDS: SENOKOT-S 1 TABLET PO ×2 (08:51→20:31)
[2024-05-12] MEDS: MAGNESIUM OXIDE 500 MG PO ×2 (08:51→20:31)
[2024-05-12] MEDS: NEURONTIN 100 MG PO ×3 (08:51→22:30)
[2024-05-12] MEDS: PACERONE 200 MG PO ×3 (08:51→22:30)
[2024-05-12] MEDS: LIDOCAINE 4% PATCH 1 PATCH TOPICAL (08:51)
[2024-05-12] MEDS: PROTONIX 40 MG PO (08:51)
[2024-05-12] MEDS: PLAVIX 75 MG PO (08:51)
[2024-05-12] MEDS: BACTROBAN 2% OINTMENT 1 APPLIC NASAL ×2 (08:52→20:32)
[2024-05-12] MEDS: TORADOL 15 MG IV (08:59)
[2024-05-12] MEDS: LOPRESSOR PO (09:07)
--- NOTE | 2024-05-12 09:16 | W.PN.CD ---
Addendum entered and electronically signed by Osmani Contreras MD 05/12/24 11:04:
correction addendum incorrect . No neuro issues or az concern. Addendum applies to a different patient
Addendum entered and electronically signed by Osmani Contreras MD 05/12/24 09:25:
reviewed with Dr Zamora . Plan for head CT and addtional assessment by neurology.
would favor exclusion of sz
Original Note:
Today's Communication / Plan
-
- continue post op care per CT surgery
Impression / Plan
-
This is the H&P summary.
H&P scanned into chart.
PCP: Ronaldo Casanova MD
CDY: Talha Contreras MD
69-year-old gentleman with history of AFib w/PVI at [facility] (2008), non obstructive CAD on cath (2003), HLD, GERD/Syed's Esophagus,
Presented to [facility] with 2 week history burning chest pain/chest tightness across chest, progressively worse with increased episodes, associated with SOB but no palps/dizziness. Initial HS troponin 43 with peak at 79. EKG with anterior
ST-T wave changes.
Brought to the labour market economist on 05/10 and found to have calcified 95% ostial LAD lesion with mod non obstructive CAD in RCA.
Maintained on IV Heparin and transferred for high risk PCI involving possible atherectomy or lithotripsy with stenting.
LHC 05/10/24-
Short LM with calcified distal LM
95% calcified ostial LAD 95%
20-30% distal LCx
20-30% ostial RCA, 40-50% prox and distal RCA
LVGram- anterior HK w/EF 50%
2D Echo 11/05/22- NLVSF, EF 55%, mild MR
IMPRESSION/PLAN:
s/P CABG 05/11/24
- stable
- sinus rhyhtm
- continue post op care per CT surgery
HLD- some intolerance to rosuvastatin
taking low dose atorvastatin 5mg- increased to 40mg
\\
GERD/BE- PPI
PAF- prior ablation 2008 at [facility]
has had intermittent palps that were identified as NSR w/PACs after multiple Kardia recordings
no evidence of AF
Physical Exam
Vital Signs/Labs
Vital Signs
Temp Pulse Resp BP Pulse Ox
98.3 F 96 20 100/67 94
05/12/24 07:59 05/12/24 09:00 05/12/24 09:04 05/12/24 09:00 05/12/24 09:04
05/11/24 05/12/24 05/13/24
06:59 06:59 06:59
Actual Weight 92.7 kg 94.2 kg
05/12/24 03:34
05/12/24 03:34
PT 15.7 Sec (11.4-14.6) H 05/11/24 19:52
INR 1.27 05/11/24 19:52
APTT 29.0 Sec (23.4-35.0) 05/11/24 19:52
Magnesium 2.2 mg/dl (1.6-2.3) 05/12/24 03:34
Triglycerides 215 mg/dl (10-149) H 05/11/24 04:55
LDL Cholesterol, Calc 75 mg/dl 05/11/24 04:55
VLDL Cholesterol, Calc 43 mg/dl (0-30) H 05/11/24 04:55
HDL Cholesterol 48 mg/dl 05/11/24 04:55
Physical Exam
Constitutional: No acute distress
Cardiovascular: Rhythm & rate is regular
Respiratory: Wheeze Absent and Rhonchi Absent
GI: Soft and Normal bowel sounds
Neuro/Psych: Alert and Oriented
Data Reviewed
-
Date of Service: May 12, 2024
Medical Decision Making: Reviewed Test Results
Echo: Report Reviewed by me
Medical Tests (PFT, Pathology etc): Report Reviewed by me
Labs: Labs Reviewed by me
[2024-05-12 10:11] LABS: Glucose - Point of Care 125 mg/dl (70-99)
[2024-05-12 11:10] LABS: Glucose - Point of Care 128 mg/dl (70-99)
[2024-05-12] MEDS: NOVOLOG FLEXPEN SC (11:22)
--- NOTE | 2024-05-12 11:32 | CM ---
Chart reviewed. Patient is independent of ADLS, lives with his , granddaughter, son and his family in a 2 STH, 2 YASMANI, 0 DME. Plan is for the patient to return home with CT Transitional RN. CM to follow
[2024-05-12 12:21] LABS: Glucose - Point of Care 151 mg/dl (70-99)
--- NOTE | 2024-05-12 12:52 | PTCARENOTE ---
Assessment unchanged; NSR on monitor and VSS; pt worked with cardiac rehab and ambulated in hallways.
[2024-05-12 13:17] LABS: Glucose - Point of Care 154 mg/dl (70-99)
[2024-05-12] MEDS: NOVOLOG FLEXPEN 4 UNITS SC ×2 (13:19→18:00)
[2024-05-12 14:12] LABS: Glucose - Point of Care 110 mg/dl (70-99)
[2024-05-12] MEDS: ROXICODONE 2.5 MG PO (16:10)
[2024-05-12 16:15] LABS: Glucose - Point of Care 119 mg/dl (70-99)
--- NOTE | 2024-05-12 16:30 | PTCARENOTE ---
Assessment changed; NSR on monitor and VSS; pt ambulate hallway with RN.
[2024-05-12] MEDS: FLEXERIL 5 MG PO (17:26)
[2024-05-12] MEDS: LIPITOR 80 MG PO (17:26)
[2024-05-12 18:00] LABS: Glucose - Point of Care 113 mg/dl (70-99)
[2024-05-12] MEDS: NSS IV (18:03)
[2024-05-12 19:23] LABS: Glucose - Point of Care 99 mg/dl (70-99)
[2024-05-12] MEDS: LOPRESSOR 12.5 MG PO (20:31)
--- NOTE | 2024-05-12 21:00 | PTCARENOTE ---
Assumed care of pt from lisa RN. Walking rounds completed. Pt AAOx3. CARTER. Sinus rhythm to sinus tach on the tele monitor. HR 90-100s. BP stable. Palpable pulses throughout. Bilateral +1 hand/LE edema present. Pt on RA. POX 91-92%. Lung sounds
diminished. Deep breathing and IS encouraged. Mediastinal CTx2 and R/L pleural CT to -20 suction, no airleak present at this time, and output WNL. CT dressing changed. Abdomen round/nontender. +BS. Denies nausea. Pt DTV post Maharaj catheter removal.
Sternal Aquacel CDI. Right knee and groin site approximated and SLY. Right IJ cordis and left PIV CDI. Glycemic protocol dc'd. Pt c/o pain - see MAR. See worklist for full nursing assessment and interventions. Call joiner within reach.
[2024-05-13] VITALS (13 sets, daily range): BP systolic 99–123; BP diastolic 57–75; PULSE 91; O2SAT 91–94; BMI 30.2
--- NOTE | 2024-05-13 00:52 | PTCARENOTE ---
Pt reassessed. Remains Sinus rhythm to sinus tach on the tele monitor. HR 90s-100s. BP stable. Pt on 2 L NC. POX 96-97%. CT assessment unchanged from previous. All surgical sites stable. Pt bladder scanned for 241 mL. No urge to void. Pt assisted to
stand at edge of bed to attempt to void. Pt able to void 125 mL of karena urine w/ a post void residual scan of 151 mL. Pt repositioned in bed. Call joiner within reach.
[2024-05-13] MEDS: ROXICODONE 5 MG PO ×3 (02:51→19:43)
--- NOTE | 2024-05-13 03:53 | W.PN.CT ---
Today's Communication / Plan
-
-pod #2
-no issues overnight, ambulates
-CT output: 2 meds 40/145, 2 pleur 180/360 in 12/24 hrs
-labs are pending
-increased Lopressor 25 bid (hr 90s overnight, hx paf)
-current meds (ASA, Plavix, Lopressor, Amio, Lipitor, Protonix)
-encourage IS, OOB
Assessment / Plan
-
Assessment:
-S/P Median sternotomy/CABG x 2 (TED to LAD, GSV to OM1)/Endoscopic harvest/prep of RLE GSV/ ELAA w/ 50mm AtriClip, by Dr. Alfonso, 05/11/24, pod#2
-Severe 2v/distal LM CAD
-NSTEMI (HS trop. peaked @ 79)
-[place]
-LVEF 55%, Mild MR per echo 11/05/22
-PAF S/P ablation @ [facility]2008
-HLD
-Class 1 obesity (BMI 30)
-GERD/Syed's esophagus
-Acute postop blood loss/Anemia (stable without blood transfusion)
-Acute postop atelectasis
-Acute postop hypovolemia with subsequent hypervolemia
-Acute vasal vagal episode with SBP 50's
Discussed patient care with: Nursing and Care Team
Subjective
Procedure
S/P Median sternotomy/CABG x 2 (TED to LAD, GSV to OM1)/Endoscopic harvest/prep of RLE GSV/ ELAA w/ 50mm AtriClip, by Dr. Alfonso, 05/11/24
-
Date of Service: May 13, 2024
Objective Data
-
PT 15.7 Sec (11.4-14.6) H 05/11/24 19:52
INR 1.27 05/11/24 19:52
APTT 29.0 Sec (23.4-35.0) 05/11/24 19:52
Vital Signs
Vital Signs
Temp Pulse Resp BP Pulse Ox
98.8 F 95 16 119/70 96
05/13/24 00:00 05/13/24 03:20 05/13/24 00:00 05/13/24 03:00 05/13/24 03:20
CT Intake/Output/Weight
05/12/24 05/12/24 05/13/24
06:59 18:59 06:59
Intake Total 381.5 / 394.1 648.9 / 708.9 60 / 708.9
Output Total 1195 / 1315 695 / 1340 645 / 1340
Balance -813.5 / -920.9 -46.1 / -631.1 -585 / -631.1
SaO2: 96
Physical Exam
-
General: Awake and AOx3
Cardiovascular: Regular rate & rhythm, No Murmurs and No Rub
Respiratory: Decreased Breath Sounds
Sternum: Stable
Incision: Clean, Dry and Intact
Extremities: No Edema (1+DPs b/l)
Abdomen: soft, mildly distended, decreased + bowel sounds, decreased + flatus, no nausea or vomiting, nontender
Data Reviewed
-
Lab Results: Results Reviewed
Medications: Active Meds Reviewed
ECG: Report Reviewed and Image Reviewed
--- NOTE | 2024-05-13 03:56 | PTCARENOTE ---
No acute changes in assessment. Pt SR to sinus tach on the tele monitor. HR 90s-100s. BP stable. Pt on 2 L NC. POX 96%. Mediastinal CTx2 and R/L plueral CT to -20 suction, no airleak at this time, and output WNL. All surgical sites stable. Pt
assisted to stand at the beside to void. Pt voided 300 mL w/ a PVR of 271 mL. Standing weight obtained. See MAR for pain medication administration. Labs drawn and sent. Call joiner within reach.
[2024-05-13 04:15] LABS: Hematocrit 28.8 % (39.0-52.0); Hemoglobin 10.4 g/dL (13.0-18.0); Mean Corp Hgb Conc. 36.1 g/dL (33.0-37.0); Mean Corpuscular Hgb 31.1 pg (27.0-31.0); Mean Corpuscular Volume 86.2 fL (80.0-94.0); Mean Platelet Volume 10.2 fL (7.4-10.4); Platelet Count 160 10^3/uL (130-400); Red Blood Cell Count 3.34 10^6/uL (4.70-6.10); White Blood Cell Count 16.7 10^3/uL (4.8-10.8)
[2024-05-13 04:35] LABS: Blood Urea Nitrogen 17 mg/dl (9-20); Calcium 8.4 mg/dl (8.4-10.2); Carbon Dioxide 25 mmol/L (22-30); Chloride 99 mmol/L (98-107); Estimated Creatinine Clearance 82 ml/min; Glucose 122 mg/dl (70-99); Potassium 4.1 mmol/L (3.5-5.1); Sodium 134 mmol/L (135-145); eGFR > 60.00
[2024-05-13] MEDS: TYLENOL 1000 MG PO ×2 (05:49→21:20)
[2024-05-13] MEDS: FLEXERIL 5 MG PO (05:49)
--- NOTE | 2024-05-13 07:34 | W.PN.INTV ---
Today's Communication / Plan
Recommendations
Wean oxygen
Increase activity
deline
Likely transfer to telemetry-call pulmonary if respiratory issues arise
Outpatient sleep apnea follow-up
Assessment
-
69-year-old male with a history of atrial fibrillation status post PVI at [facility] in 2008, hyperlipidemia, GERD, CAD, and untreated YVONNE. History of 2 weeks of chest burning and tightness associate with shortness of breath who underwent cardiac
catheterization found to have significant CAD and underwent CABG-machine hand consulted for postoperative ventilator/critical care management 05/12/2024.
CAD-status post CABG-Dr. Alfonso 05/11/2024
NSTEMI
Leukocytosis-WBC 16.9
Mild normocytic anemia-hemoglobin 11.7
Mild hyperglycemia
Conditions present prior to admission:
Hypertension.
Hyperlipidemia.
Atrial fibrillation/PVI-[facility] 2008.
CAD.
GERD.
Syed's esophagus.
Fatty liver
Orthopedic surgery.
Plan
Tolerated extubation
Wean FiO2
Encourage incentive spirometry
Increase activity
Aspiration precautions
Pulmonary artery catheter and arterial line will be removed
Pressors have been weaned
Continue to monitor chest tube output
Follow hemoglobin
Continue to follow platelet count and coags
Transfuse blood product as needed
CT surgery following chest tubes as well
Follow blood sugar
Insulin supplementation continues as needed
Early nutrition
Early mobilization
DVT prophylaxis
Patient will be transferred to telemetry phase-call pulmonary if respiratory issues arise
Patient with a history of obstructive sleep apnea not on CPAP therapy diagnosed years ago-still has significant symptoms-recommend outpatient sleep disorders/sleep study evaluation
Reviewed the patient's pertinent medical records including radiographs, pressor management, microbiology, laboratory evaluations, and discussion with primary team, critical care nursing, and respiratory therapy.
Diagnostic data:
Chest x-ray 02/12/2024-NAD
Chest x-ray 05/11/2024-postoperative changes with no pneumothorax, ET tube 3 [address] chest 05/10/2024-no active cardiopulmonary disease, atherosclerosis, minimal scarring versus dependent atelectasis posterior lung bases, nonobstructing calculus upper pole of both kidneys, diffuse fatty infiltration of the liver
LHC 05/10/24-
Short LM with calcified distal LM
95% calcified ostial LAD 95%
20-30% distal LCx
20-30% ostial RCA, 40-50% prox and distal RCA
LVGram- anterior HK w/EF 50%
Echocardiogram 05/11/2024-EF 55-60%, no valvular disease
Subjective Dataa
Subjective Data
Date of Service:
Date of Service: May 13, 2024
Chief Complaint: Principal Clerk Typist Follow Up, Pulmonary Follow Up and Vent Management Follow Up
Subjective:
Tolerated extubation, complains of pain and difficulty sleeping because of it, mild shortness of breath at rest, no abdominal pain, mild leg swelling
Review of Systems
General: Other (Per HPI)
Objective Data
Data Reviewed
Vital Signs / I&O / Oxygen:
Vital Signs
Temp Pulse Resp BP Pulse Ox
98.5 F 97 16 110/63 95
05/13/24 04:00 05/13/24 06:40 05/13/24 04:00 05/13/24 06:00 05/13/24 05:30
Intake and Output
05/12/24 05/13/24 05/14/24
06:59 06:59 06:59
Intake Total 381.5 / 394.1 738.9 / 738.9
Output Total 1195 / 1315 1670 / 1670
Balance -813.5 / -920.9 -931.1 / -931.1
SaO2 [CPAP/PSV] 97
SaO2 [SIMV] 96
SaO2 95
Nasal Cannula flow liters per 2
minute
Physical Exam
General: Respiratory Distress (n) and Comfortable
HEENT: Normocephalic and Anicteric
Cardiovascular: Regular Rhythm
Respiratory: Wheeze (n), Crackles, Rhonchi (n), Non-Labored Respirations, Accessory Resp Muscle Use and Stridor
GI: Soft, Non Distended and Non Tender
Neurology: Awake, Alert and No Motor Deficits
Skin: Warm, Good Color, Cyanosis (n), Jaundice (n) and Rash (n)
Labs/Micro/Reports
Lab Data
05/13/24 03:52
05/13/24 03:52
Microbiology
05/10/24 20:40 Nose MRSA Screen - Final
No Methicillin Resistant Staphylococcus aureus isolated.
[2024-05-13] MEDS: NOVOLOG FLEXPEN SC ×2 (08:23→12:00)
[2024-05-13] MEDS: LOW STRENGTH ASPIRIN 81 MG PO (08:24)
[2024-05-13] MEDS: PACERONE 200 MG PO ×3 (08:24→21:20)
[2024-05-13] MEDS: SENOKOT-S 1 TABLET PO ×2 (08:24→19:43)
[2024-05-13] MEDS: MAGNESIUM OXIDE 500 MG PO ×2 (08:24→19:43)
[2024-05-13] MEDS: LIDOCAINE 4% PATCH 1 PATCH TOPICAL (08:24)
[2024-05-13] MEDS: NEURONTIN 100 MG PO ×3 (08:24→21:21)
[2024-05-13] MEDS: PROTONIX 40 MG PO (08:24)
[2024-05-13] MEDS: BACTROBAN 2% OINTMENT 1 APPLIC NASAL ×2 (08:25→19:43)
[2024-05-13] MEDS: PLAVIX 75 MG PO (08:26)
--- NOTE | 2024-05-13 08:30 | PTCARENOTE ---
Received pt from mold shifter RN; pt AAOx3 and resting comfortably in chair; NSR on monitor and VSS; RIJ Cordis and PIV patent; Lungs diminshed with fine crackles in bases; IS to 1000; CT x4 to -20 wall suction no air leak and no crepitus noted;
hypoactive bowel sounds; Pt voiding clear yellow urine; palpable pulses throughout; +1 generalized edema noted; surgical sites C/D/I; see nursing documentation for further details.
[2024-05-13] MEDS: LOPRESSOR 25 MG PO ×2 (08:34→19:43)
--- NOTE | 2024-05-13 08:44 | W.PN.CD ---
Today's Communication / Plan
-
stable and remains in sinus
continuepost op care per CT surgery
Impression / Plan
-
This is the H&P summary.
H&P scanned into chart.
PCP: Ronaldo Casanova MD
CDY: Talha Contreras MD
69-year-old gentleman with history of AFib w/PVI at [facility] (2008), non obstructive CAD on cath (2003), HLD, GERD/Syed's Esophagus,
Presented to [facility] with 2 week history burning chest pain/chest tightness across chest, progressively worse with increased episodes, associated with SOB but no palps/dizziness. Initial HS troponin 43 with peak at 79. EKG with anterior
ST-T wave changes.
Brought to the record label intern on 05/10 and found to have calcified 95% ostial LAD lesion with mod non obstructive CAD in RCA.
Maintained on IV Heparin and transferred for high risk PCI involving possible atherectomy or lithotripsy with stenting.
LHC 05/10/24-
Short LM with calcified distal LM
95% calcified ostial LAD 95%
20-30% distal LCx
20-30% ostial RCA, 40-50% prox and distal RCA
LVGram- anterior HK w/EF 50%
2D Echo 11/05/22- NLVSF, EF 55%, mild MR
IMPRESSION/PLAN:
s/P CABG 05/11/24
- stable
- sinus rhyhtm
- continue post op care per CT surgery
HLD- some intolerance to rosuvastatin
taking low dose atorvastatin 5mg- increased to 40mg
\\
GERD/BE- PPI
PAF- prior ablation 2008 at [facility]
has had intermittent palps that were identified as NSR w/PACs after multiple Kardia recordings
no evidence of AF
subjective : post op pain limiting sleep. hoping to get chest tubes out. no sob. no palp. remains in sinus
Physical Exam
Vital Signs/Labs
Vital Signs
Temp Pulse Resp BP Pulse Ox
98.5 F 98 16 105/65 95
05/13/24 04:00 05/13/24 08:34 05/13/24 04:00 05/13/24 08:34 05/13/24 05:30
05/12/24 05/13/24 05/14/24
06:59 06:59 06:59
Actual Weight 95.5 kg
05/13/24 03:52
05/13/24 03:52
PT 15.7 Sec (11.4-14.6) H 05/11/24 19:52
INR 1.27 05/11/24 19:52
APTT 29.0 Sec (23.4-35.0) 05/11/24 19:52
Magnesium 2.0 mg/dl (1.6-2.3) 05/13/24 03:52
Triglycerides 215 mg/dl (10-149) H 05/11/24 04:55
LDL Cholesterol, Calc 75 mg/dl 05/11/24 04:55
VLDL Cholesterol, Calc 43 mg/dl (0-30) H 05/11/24 04:55
HDL Cholesterol 48 mg/dl 05/11/24 04:55
Physical Exam
Constitutional: No acute distress
Cardiovascular: Rhythm & rate is regular
Respiratory: Wheeze Absent and Rhonchi Absent
GI: Soft and Non tender
Neuro/Psych: Alert
Data Reviewed
-
Date of Service: May 13, 2024
Medical Decision Making: Reviewed Test Results
X-Ray/CT/US/MRI/NUC/PET: Report Reviewed by me
Labs: Labs Reviewed by me
[2024-05-13] MEDS: TORADOL 15 MG IV (08:45)
[2024-05-13] MEDS: LASIX 40 MG IV (09:49)
--- NOTE | 2024-05-13 10:23 | SUR.OPER ---
Chest tubes X4 removed per CVPA order; awaiting CRX.
--- NOTE | 2024-05-13 11:24 | CM ---
Chart reviewed. Patient is independent of ADLS, lives with his , granddaughter, and son and his family in a 2 STH, 2 YASMANI, 0 DME. Plan is for the patient to return home with CT Transitional RN. CM to follow
--- NOTE | 2024-05-13 13:25 | PTCARENOTE ---
Assessment unchanged; NSR on monitor and VSS; pt ambulated hallway with cardiac rehab and resting comfortably in chair.
[2024-05-13] MEDS: TYLENOL PO (15:41)
--- NOTE | 2024-05-13 15:56 | PTCARENOTE ---
Assessment unchanged; NSR on monitor and VSS; family at bedside.
[2024-05-13] MEDS: LIPITOR 80 MG PO (16:55)
[2024-05-13 17:59] LABS: Glucose - Point of Care 165 mg/dl (70-99)
[2024-05-13] MEDS: NOVOLOG FLEXPEN-LOW RESISTANCE 1 UNITS SC (18:00)
[2024-05-13] MEDS: NSS 500 IV (19:42)
--- NOTE | 2024-05-13 20:00 | PTCARENOTE ---
Received pt from [facility]. pt resting comfortably in chair, family at bedside. pt is AAOx4, states pain is 4/10, see OCT. ST on monitor, VSS. heart sounds audible, radial and DP pulses palpable, trace generalized edema. lung sounds diminished
throughout, spo2 95% on RA. hypoactive BS x4 quadrants, abdomen soft non tender. pt voiding clear yellow urine without difficulty. surgical sites maintained. right IJ cordis and PIV maintained. call joiner within reach. will continue to monitor.
[2024-05-13 21:23] LABS: Glucose - Point of Care 149 mg/dl (70-99)
[2024-05-14] VITALS (14 sets, daily range): BP systolic 91–118; BP diastolic 60–75; PULSE 87; O2SAT 95; BMI 29.9
--- NOTE | 2024-05-14 | PTCARENOTE ---
Pt assessment unchanged. NSR on monitor, VSS. 2LNC overnight. pt resting comfortably. Call joiner within reach. Will continue to monitor.
[2024-05-14 03:58] LABS: Hematocrit 28.7 % (39.0-52.0); Hemoglobin 10.2 g/dL (13.0-18.0); Mean Corp Hgb Conc. 35.5 g/dL (33.0-37.0); Mean Corpuscular Hgb 31.1 pg (27.0-31.0); Mean Corpuscular Volume 87.5 fL (80.0-94.0); Mean Platelet Volume 10.3 fL (7.4-10.4); Platelet Count 159 10^3/uL (130-400); Red Blood Cell Count 3.28 10^6/uL (4.70-6.10); Red Cell Dist. Width 13.2 % (11.5-14.5); White Blood Cell Count 13.6 10^3/uL (4.8-10.8)
--- NOTE | 2024-05-14 04:00 | PTCARENOTE ---
Pt assessment unchanged. NSR on monitor. VSS. AM labs drawn and sent. call joiner within reach. will continue to monitor.
[2024-05-14 04:28] LABS: Blood Urea Nitrogen 20 mg/dl (9-20); Calcium 8.2 mg/dl (8.4-10.2); Carbon Dioxide 27 mmol/L (22-30); Chloride 99 mmol/L (98-107); Estimated Creatinine Clearance 82 ml/min; Glucose 121 mg/dl (70-99); Magnesium 2.2 mg/dl (1.6-2.3); Potassium 4.1 mmol/L (3.5-5.1); Sodium 135 mmol/L (135-145); eGFR > 60.00
[2024-05-14] MEDS: TYLENOL 1000 MG PO ×3 (06:27→21:39)
--- NOTE | 2024-05-14 06:32 | W.PN.CT ---
Addendum entered and electronically signed by Gerardo Alfonso MD 05/14/24 08:23:
I saw and examined the patient.
The PA's note was reviewed and I agree with the note.
Comment:
Postop day #3 status post CABG x 2/ELAA
No major overnight events, doing well
DC Cordis
Continue diuresis
Aspirin/Plavix/beta-shaneka/Amio/Lipitor
Out of bed I-S ambulate
Discharge planning for tomorrow
Original Note:
Today's Communication / Plan
-
-pod #3
-no issues overnight
-diuresed with 40 iv Lasix on 05/13 (UO 1050)
-wean off O2 as tolerated
-current meds (ASA, Plavix, Lopressor, Amio, Lipitor, Protonix)
-encourage IS, OOB
Assessment / Plan
-
Assessment:
-S/P Median sternotomy/CABG x 2 (TED to LAD, GSV to OM1)/Endoscopic harvest/prep of RLE GSV/ ELAA w/ 50mm AtriClip, by Dr. Alfonso, 05/11/24, pod#3
-Severe 2v/distal LM CAD
-NSTEMI (HS trop. peaked @ 79)
-[place]
-LVEF 55%, Mild MR per echo 11/05/22
-PAF S/P ablation @ [facility]2008
-HLD
-Class 1 obesity (BMI 30)
-GERD/Syed's esophagus
-Acute postop blood loss/Anemia (stable without blood transfusion)
-Acute postop atelectasis
-Acute postop hypovolemia with subsequent hypervolemia
-Acute vasal vagal episode with SBP 50's
Discussed patient care with: Nursing and Care Team
Subjective
Procedure
S/P Median sternotomy/CABG x 2 (TED to LAD, GSV to OM1)/Endoscopic harvest/prep of RLE GSV/ ELAA w/ 50mm AtriClip, by Dr. Alfonso, 05/11/24
-
Date of Service: May 14, 2024
Objective Data
-
PT 15.7 Sec (11.4-14.6) H 05/11/24 19:52
INR 1.27 05/11/24 19:52
APTT 29.0 Sec (23.4-35.0) 05/11/24 19:52
Vital Signs
Vital Signs
Temp Pulse Resp BP Pulse Ox
98.5 F 87 20 100/67 97
05/14/24 00:00 05/14/24 00:00 05/14/24 00:00 05/14/24 00:00 05/14/24 00:00
CT Intake/Output/Weight
05/13/24 05/13/24 05/14/24
06:59 18:59 06:59
Intake Total 90 / 738.9 40 / 40
Output Total 975 / 1670 1070 / 1295 225 / 1295
Balance -885 / -931.1 -1030 / -1255 -225 / -1255
SaO2: 97
Physical Exam
-
General: Awake and AOx3
Cardiovascular: Regular rate & rhythm, No Murmurs and No Rub
Respiratory: Decreased Breath Sounds
Sternum: Stable
Incision: Clean, Dry and Intact
Abdomen: soft, mildly distended, decreased + bowel sounds, decreased + flatus, no nausea or vomiting, nontender
Extremities: No Edema (1+DPs b/l)
Data Reviewed
-
Lab Results: Results Reviewed
Medications: Active Meds Reviewed
Chest X-Ray: Report Reviewed and Image Reviewed
ECG: Report Reviewed and Image Reviewed
[2024-05-14 07:28] LABS: Glucose - Point of Care 149 mg/dl (70-99)
[2024-05-14] MEDS: NOVOLOG FLEXPEN-LOW RESISTANCE SC ×3 (07:29→16:34)
--- NOTE | 2024-05-14 07:30 | PTCARENOTE ---
Received pt from [facility]. Walking rounds completed. Pt in chair for nursing assessment. Pt is AAOx4. VSS, NSR to Sinus Tach on monitor. Pulses palpable, +1 generalized edema. Lungs clear, diminished in bases. C/T dressing C/D/I, BS normal
throughout. Abdomen is rounded, soft, non-tender. Pt is voiding in urinal, clear, karena urine. Sternal incision, Aquacel dressing with old drainage noted. Morning medications delivered (see MAR). Discussed plan of care with pt. Pt agrees with plan.
[2024-05-14] MEDS: LIDOCAINE 4% PATCH 1 PATCH TOPICAL (07:31)
[2024-05-14] MEDS: BACTROBAN 2% OINTMENT 1 APPLIC NASAL ×2 (07:31→19:46)
[2024-05-14] MEDS: LOW STRENGTH ASPIRIN 81 MG PO (07:33)
[2024-05-14] MEDS: NEURONTIN 100 MG PO ×3 (07:33→21:40)
[2024-05-14] MEDS: MAGNESIUM OXIDE 500 MG PO ×2 (07:34→19:46)
[2024-05-14] MEDS: PROTONIX 40 MG PO (07:34)
[2024-05-14] MEDS: SENOKOT-S 1 TABLET PO ×2 (07:35→19:46)
[2024-05-14] MEDS: PACERONE 200 MG PO ×3 (07:35→21:39)
[2024-05-14] MEDS: PLAVIX 75 MG PO (07:36)
[2024-05-14] MEDS: LOPRESSOR 25 MG PO ×2 (07:41→19:45)
[2024-05-14] MEDS: LASIX 40 MG IV (09:03)
--- NOTE | 2024-05-14 10:06 | W.PN.CD ---
Today's Communication / Plan
-
continue post op care as per CT surgery,
continue current cardiac meds
d/c tomorrow
Impression / Plan
-
NSTEMI s/p CABG 05/11/24
- stable
- sinus rhyhtm
- continue post op care per CT surgery
-back on DAPT, Lopressor
-Continue ICS
HLD- some intolerance to rosuvastatin
taking low dose atorvastatin 5mg- increased to 40mg
PAF- prior ablation 2008 at [facility]
has had intermittent palps that were identified as NSR w/PACs after multiple Kardia recordings
no evidence of AF
GERD/BE- PPI
subjective :
he is tired but feeling well otherwise.
Physical Exam
Vital Signs/Labs
Vital Signs
Temp Pulse Resp BP Pulse Ox
97.9 F 88 16 103/69 93
05/14/24 07:24 05/14/24 09:03 05/14/24 07:24 05/14/24 09:03 05/14/24 07:25
05/13/24 05/14/24 05/15/24
06:59 06:59 06:59
Actual Weight 95.5 kg 94.6 kg
05/14/24 03:39
05/14/24 03:39
PT 15.7 Sec (11.4-14.6) H 05/11/24 19:52
INR 1.27 05/11/24 19:52
APTT 29.0 Sec (23.4-35.0) 05/11/24 19:52
Magnesium 2.2 mg/dl (1.6-2.3) 05/14/24 03:39
Triglycerides 215 mg/dl (10-149) H 05/11/24 04:55
LDL Cholesterol, Calc 75 mg/dl 05/11/24 04:55
VLDL Cholesterol, Calc 43 mg/dl (0-30) H 05/11/24 04:55
HDL Cholesterol 48 mg/dl 05/11/24 04:55
Physical Exam
Constitutional: No acute distress
Cardiovascular: Rhythm & rate is regular, Pedal edema is absent, JVD pressure is normal, Systolic murmur absent and Diastolic murmur absent
Respiratory: Respiratory effort normal, Lungs clear to auscul., Wheeze Absent, Crackles Absent (initial but improve with deep breathing) and Rhonchi Absent
Data Reviewed
-
Date of Service: May 14, 2024
EKG: Other (sinus)
--- NOTE | 2024-05-14 11:47 | CM ---
Chart reviewed. Patient is independent of ADLS, lives with his , granddaughter, and son's family in a 2 STH, 2 YASMANI, 0 DME. Plan is for the patient to return home with CT Transitional RN.
--- NOTE | 2024-05-14 11:49 | PTCARENOTE ---
Pt received from Samantha RN at 1015; AAOx3, Responds to Spontaneous response to RN and follows commands; NSR rhythm on monitor; +2 DP and radial pulses; Trace generalized anasarca present; Lungs diminished at bases and patient occasionally coughing up
white sputum - SpO2 92-93% on RA; IS 1750 ml; Normoactive BS; Patient urinating clear, yellow urine; Surgical sites intact; PIVx1 LAC; RIJ Cordis present and discontinued as per orders; Patient denies any pain at this time; See nursing documentation
for further details.
[2024-05-14 12:09] LABS: Glucose - Point of Care 147 mg/dl (70-99)
--- NOTE | 2024-05-14 16:19 | PTCARENOTE ---
Patient ambulated in hallways multiple times throughout shift. VSS throughout. Resting comfortably in chair.
[2024-05-14 16:35] LABS: Glucose - Point of Care 135 mg/dl (70-99)
[2024-05-14] MEDS: LIPITOR 80 MG PO (17:14)
[2024-05-14] MEDS: NSS IV (18:24)
--- NOTE | 2024-05-14 20:00 | PTCARENOTE ---
Received pt from [facility]. pt resting comfortably in bed with at bedside. pt is AAOx4, states pain is a 3-4/10, see MAR. NSR on monitor, VSS. heart sounds audible, radial ad DP pulses palpable, trace generalized edema. lungs diminished at b/l
bases, spo2 95% on RA. +BS x4 quadrant, abdomen soft, non tender. pt voiding clear yellow urine without difficulty. surgical sites maintained. PIV maintained. plan is for d/c tomorrow 05/15. call joiner within reach. will continue to monitor.
[2024-05-14] MEDS: ROXICODONE 5 MG PO (21:39)
[2024-05-15] VITALS (7 sets, daily range): BP systolic 102–127; BP diastolic 65–73; PULSE 90; O2SAT 95–97; BMI 29.7
--- NOTE | 2024-05-15 | PTCARENOTE ---
Pt assessment unchanged.NSR on monitor. VSS. pt resting comfortably in bed. call joiner within reach. will continue to monitor.
[2024-05-15] MEDS: MELATONIN 3 MG PO (01:08)
--- NOTE | 2024-05-15 02:22 | W.PN.CT ---
Addendum entered and electronically signed by Gerardo Alfonso MD 05/15/24 08:18:
I saw and examined the patient.
The PA's note was reviewed and I agree with the note.
Comment:
Postop day #4 status post coronary artery bypass grafting x 2/ELAA
Doing very well. No overnight events. No complaints.
Check two-view chest x-ray today
Continue aspirin/Plavix/beta-shaneka/Amio/Lipitor
Out of bed I-S ambulate
Discharge home today
Original Note:
Today's Communication / Plan
-
-pod #4
-no issues overnight, no complaints
-diuresed with 40 iv Lasix on 05/14 (UO 1250+)
-weaned off O2- pOx 95% on RA. IS 2000
-follow 2v-CXR
-current meds (ASA, Plavix, Lopressor, Amio, Lipitor, Protonix)
-encourage IS, OOB, ambulate
-likely d/c home
Assessment / Plan
-
Assessment:
-S/P Median sternotomy/CABG x 2 (TED to LAD, GSV to OM1)/Endoscopic harvest/prep of RLE GSV/ ELAA w/ 50mm AtriClip, by Dr. Alfonso, 05/11/24, pod#4
-Severe 2v/distal LM CAD
-NSTEMI (HS trop. peaked @ 79)
-[place]
-LVEF 55%, Mild MR per echo 11/05/22
-PAF S/P ablation @ [facility]
-HLD
-Class 1 obesity (BMI 30)
-GERD/Syed's esophagus
-Acute postop blood loss/Anemia (stable without blood transfusion)
-Acute postop atelectasis
-Acute postop hypovolemia with subsequent hypervolemia
-Acute vasal vagal episode with SBP 50's
Discussed patient care with: Nursing and Care Team
Subjective
Procedure
S/P Median sternotomy/CABG x 2 (TED to LAD, GSV to OM1)/Endoscopic harvest/prep of RLE GSV/ ELAA w/ 50mm AtriClip, by Dr. Alfonso, 05/11/24
-
Date of Service: May 15, 2024
Objective Data
-
PT 15.7 Sec (11.4-14.6) H 05/11/24 19:52
INR 1.27 05/11/24 19:52
APTT 29.0 Sec (23.4-35.0) 05/11/24 19:52
Vital Signs
Vital Signs
Temp Pulse Resp BP Pulse Ox
98.4 F 90 16 109/68 91
05/15/24 00:00 05/15/24 00:00 05/15/24 00:00 05/15/24 00:00 05/15/24 00:00
CT Intake/Output/Weight
05/14/24 05/14/24 05/15/24
06:59 18:59 06:59
Intake Total 840 / 840
Output Total 550 / 1620 1250 / 1675 425 / 1675
Balance -550 / -1580 -410 / -835 -425 / -835
SaO2: 91
Physical Exam
-
General: Awake and AOx3
Cardiovascular: Regular rate & rhythm, No Murmurs and No Rub
Respiratory: Decreased Breath Sounds
Sternum: Stable
Incision: Clean, Dry and Intact
Abdomen: soft, mildly distended, decreased + bowel sounds, decreased + flatus, no nausea or vomiting, nontender
Extremities: No Edema (1+DPs b/l)
Data Reviewed
-
Lab Results: Results Reviewed
Medications: Active Meds Reviewed
Chest X-Ray: Report Reviewed and Image Reviewed
ECG: Report Reviewed and Image Reviewed
--- NOTE | 2024-05-15 04:00 | PTCARENOTE ---
Pt assessment unchanged. NSR on monitor. VSS. AM labs drawn and sent. call joiner within reach. will continue to monitor.
[2024-05-15 05:29] LABS: Hematocrit 29.5 % (39.0-52.0); Hemoglobin 10.6 g/dL (13.0-18.0); Mean Corp Hgb Conc. 35.9 g/dL (33.0-37.0); Mean Corpuscular Hgb 32.1 pg (27.0-31.0); Mean Corpuscular Volume 89.4 fL (80.0-94.0); Mean Platelet Volume 10.4 fL (7.4-10.4); Platelet Count 190 10^3/uL (130-400); Red Cell Dist. Width 12.7 % (11.5-14.5); White Blood Cell Count 11.7 10^3/uL (4.8-10.8)
[2024-05-15 05:57] LABS: Blood Urea Nitrogen 20 mg/dl (9-20); Calcium 8.2 mg/dl (8.4-10.2); Carbon Dioxide 28 mmol/L (22-30); Chloride 100 mmol/L (98-107); Estimated Creatinine Clearance 66 ml/min; Glucose 111 mg/dl (70-99); Magnesium 2.2 mg/dl (1.6-2.3); Potassium 4.1 mmol/L (3.5-5.1); Sodium 136 mmol/L (135-145); eGFR > 60.00
[2024-05-15] MEDS: TYLENOL 1000 MG PO (06:26)
--- NOTE | 2024-05-15 08:00 | PTCARENOTE ---
pt received from previous RN, oriented, OOB in chair. SR on the monitor, HR 80-90s. SBP 110s. palpable pulses. pt on RA, 94% POX. lungs clear, diminished in R base. IS encouraged. pt abdomen s/n, denies n/v. diet tolerated well. +BS, no BM yet.
voids. sternal incision approximated. chest tube site c/d/i. 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 R knee incision [employer]ILD AND FAMILY SERVICES WORKER. PIV. pt c/o intermittent numbness in L arm, distal to elbow. MAGDA Gregorio aware. see worklist for VS, I&O, and assessment.
[2024-05-15 08:43] LABS: Glucose - Point of Care 136 mg/dl (70-99)
[2024-05-15] MEDS: NOVOLOG FLEXPEN-LOW RESISTANCE SC ×2 (08:44→13:10)
[2024-05-15] MEDS: LIDOCAINE 4% PATCH TOPICAL (08:47)
[2024-05-15] MEDS: PROTONIX 40 MG PO (09:02)
[2024-05-15] MEDS: PLAVIX 75 MG PO (09:02)
[2024-05-15] MEDS: NEURONTIN 100 MG PO (09:02)
[2024-05-15] MEDS: BACTROBAN 2% OINTMENT 1 APPLIC NASAL (09:03)
[2024-05-15] MEDS: LOW STRENGTH ASPIRIN 81 MG PO (09:03)
[2024-05-15] MEDS: SENOKOT-S 1 TABLET PO (09:03)
[2024-05-15] MEDS: PACERONE 200 MG PO (09:03)
[2024-05-15] MEDS: LOPRESSOR 25 MG PO (09:03)
[2024-05-15] MEDS: MAGNESIUM OXIDE 500 MG PO (09:03)
--- NOTE | 2024-05-15 11:06 | W.DCSUMMARY ---
Discharge Summary
Discharge Data
Date of Admission: 05/10/24
Date of Discharge: 05/15/24
-
Pending Results: No
Hospital Course
Patient was a transfer from [facility] for ultimate CABG. The patient had a non-ST elevated myocardial infarction on May 10. He was subsequently transferred and underwent coronary artery bypass grafting by Dr. Alfonso on May 11.
Please refer to his separately dictated operative report for complete details. Postoperatively he was transferred to the intensive care unit on low-dose Levophed and Precedex drips. He was extubated per protocol at 2315 that evening. He was
weaned from Levophed overnight.
Postoperative day #1: Patient was given some gentle fluid resuscitation with lactated Ringer's. Maharaj catheter was discontinued. Patient was given 1 dose of Toradol. He began working with therapy. No other acute issues.
Postoperative day #2: Chest tubes were removed. Beta-blockers were titrated to effect. Patient was given a single dose of IV diuretics with good response.
Postoperative day #3: Patient was given an additional unit of IV diuretics. Central line was discontinued. He continued to work well with therapy. He was weaned to room air.
Postoperative day #4: Patient remains stable on room air. He is ambulating independently. No other new concerns. Plan on discharge to home today. Discharge instructions were reviewed extensively with the patient and his questions were answered
to his satisfaction prior to leaving today. He understands his instructions and knows he can call our service 24 hours a day with any new issues or concerns.
Discharge Plan
-
Patient Disposition: Home (Routine Discharge)
Discharge Diagnosis/Procedures: -Status post coronary artery bypass grafting x 2 (left internal thoracic artery to left anterior descending, saphenous vein graft to obtuse marginal 1)/Endoscopic harvest/prep of right lower extremity greater
saphenous vein/exclusion of left atrial appendage with 50mm AtriClip, by Dr. Alfonso, 05/11/24
-Coronary artery disease
-Non-ST elevated myocardial infarction
-Unstable angina
-Left ventricular ejection fraction 55%, Mild mitral regurgitation per echo 11/05/22
-Paroxysmal atrial fibrillation status post ablation @ [facility], 2008
-Hyperlipidemia
-Class 1 obesity (body mass index 30)
-Gastroesophageal reflux disease/Syed's esophagus
-Acute postoperative blood loss/Anemia (stable without blood transfusion)
-Acute postoperative atelectasis
-Acute postoperative hypovolemia with subsequent hypervolemia
-Acute vasal vagal episode with systolic blood pressure 50s
Diet: Low Cholesterol
Activity: No strenuous activity
Driving Restrictions: Not until seen by your Dr
Bathing Restrictions: OK to Shower
Specialty Instructions: Weigh Daily- Call MD for wt gain/loss 3 lbs overnight/5 lbs in 1 week
Activity Restrictions/Additional Instructions:
ACTIVITY:
-No strenuous activity: no heavy lifting, pushing, pulling anything over 15 pounds for one month
-continue to use stairs as tolerated
DRIVING RESTRICTIONS:
-No driving for one month or until approved by your surgeon
WOUND CARE:
-Shower daily. Use soap & water.
-No lotions, creams or powders on incision area.
DIET:
-continue a low fat/low cholesterol diet.
-IF you are diabetic, continue carb controlled diet.
CARDIAC REHAB:
-Please make appointment to start in 5-6 weeks with your local hospital program. (See Cardiac Rehabilitation Discharge Booklet).
SPECIALTY INSTRUCTIONS:
-Weigh yourself daily. Call your physician for any weight gain/loss of 3 lbs overnight or 5 lbs in one week.
-REPORT any clicking noise or uneven appearance of your sternum to your surgeon immediately.
-If you smoke, you are instructed to quit. The [place] smoking hotline phone number is [phone]
Stand Alone Forms: DC Instructions- Cath/EP Lab
Referrals:
CT Transitional Care Nurse [Outside] (The Cardiothoracic Transitional Care Nurse will call you to set up a visit in 1-2 days.)
[facility] [Outside]
(Cardiac Rehab Orientation appointment is on Friday06/15/2024@ 0930am.
The Cardiac Rehab gym is located on the first floor of the [facility].)
Ronaldo Casanova MD [Non-Admitting Privileges] - in one to two months
Shavonne Herrera CRNP [Specified Professional Personl] - 06/22/24 9:20 am
()
Delroy Branch MD [Active] - in three to four weeks (Obstructive sleep apnea workup-needs home sleep study)
Gerardo Alfonso MD [Active] - 06/08/24 3:00 pm
Prescriptions:
New
atorvastatin 80 mg Tablet
80 mg PO QPM Qty: 30 2RF
acetaminophen 325 mg Tablet
650 mg PO Q4HPRN PRN (Reason: mild pain,headache,temp >101F ) Qty: 60 0RF
clopidogrel 75 mg Tablet
75 mg PO DAILY 365 Days Qty: 30 2RF
pantoprazole 40 mg Tablet,Delayed Release (Dr/Ec)
40 mg PO DAILY Qty: 30 2RF
aspirin 81 mg Tablet,Chewable
81 mg PO DAILY Qty: 30 0RF
oxycodone 5 mg Tablet
5 mg PO Q4HPRN PRN (Reason: moderate pain) Qty: 30 0RF
metoprolol tartrate 25 mg Tablet
25 mg PO Q12 Qty: 60 2RF
Continued
.Smartcal
1 tab PO DAILY
pyridoxine (vitamin B6) 50 mg Tablet
50 mg PO DAILY
omega-3 fatty acids-fish oil 684-1,200 mg Capsule,Delayed Release(Dr/Ec)
3 cap PO DAILY
cholecalciferol (vitamin D3) [Vitamin D3] 50 mcg (2,000 unit) Capsule
50 mcg PO DAILY
vitamin K2 90 mcg Capsule
90 mcg PO DAILY
Discontinued
atorvastatin 10 mg Tablet
5 mg PO DAILY
omeprazole [Prilosec] 20 mg Capsule,Delayed Release(Dr/Ec)
20 mg PO DAILY
Discharge Orders:
Discharge Patient (As Directed); Ordered 05/15/24
Ordered By: Tiburcio Gregorio
Care Plan Goals
Care Plan Goals:
Problem: Readiness for enhanced knowledge related to diagnosis and treatment plan
Goal: Understand your diagnosis and treatment plan needs, including medications if applicable.
Instructions: Know your diagnosis, underlying causes and treatment plan options, including medications if applicable. Consult with your health care team to learn about your diagnosis and treatment plan, including medications if applicable.
Discharge Date and Time
Print Language: ITALIAN
--- NOTE | 2024-05-15 12:30 | PTCARENOTE ---
pt VSS, no changes in assessment. OOB in chair for lunch, brother at bedside.
--- NOTE | 2024-05-15 13:42 | PTCARENOTE ---
pt discharged home w/ , discharge instructions reviewed w/ patient and . questions answered. home meds reviewed. IV and tele dc'd. pt showered independently. dressed self. pt left via wheelchair w/ all belongings via staff escort.
== END 2024-05-15 13:50 | disposition home or self-care (01) | DRG 234 ==
LOC: CVICU 16:16
PROVIDERS: Clinical Nurse Specialist Acute Care; Nurse Practitioner; Physician Assistant Medical; ADMITTING PHYSICIAN Internal Medicine Cardiovascular Disease; ATTENDING PHYSICIAN Thoracic Surgery (Cardiothoracic Vascular Surgery); CONSULT PHYSICIAN Internal Medicine Critical Care Medicine
PROC: B241ZZ3 Ultrasonography of Multiple Coronary Arteries, Intravascular (ICD-10-PCS; 2024-05-10)
PROC: 4A033BC Measurement of Arterial Pressure, Coronary, Percutaneous Approach (ICD-10-PCS; 2024-05-10)
PROC: 4A023N7 Measurement of Cardiac Sampling and Pressure, Left Heart, Percutaneous Approach (ICD-10-PCS; 2024-05-10)
PROC: B2111ZZ Fluoroscopy of Multiple Coronary Arteries using Low Osmolar Contrast (ICD-10-PCS; 2024-05-10)
PROC: 021009W Bypass Coronary Artery, One Artery from Aorta with Autologous Venous Tissue, Open Approach (ICD-10-PCS; 2024-05-11)
PROC: 06BP4ZZ Excision of Right Saphenous Vein, Percutaneous Endoscopic Approach (ICD-10-PCS; 2024-05-11)
PROC: 02L70CK Occlusion of Left Atrial Appendage with Extraluminal Device, Open Approach (ICD-10-PCS; 2024-05-11)
PROC: 5A1221Z Performance of Cardiac Output, Continuous (ICD-10-PCS; 2024-05-11)
PROC: 02100ZC Bypass Coronary Artery, One Artery from Thoracic Artery, Open Approach (ICD-10-PCS; 2024-05-11)
DX: I21.4 Non-ST elevation (NSTEMI) myocardial infarction (principal); D62 Acute posthemorrhagic anemia; J98.11 Atelectasis; I25.10 Atherosclerotic heart disease of native coronary artery without angina pectoris; I48.0 Paroxysmal atrial fibrillation; E86.1 Hypovolemia; E87.70 Fluid overload, unspecified; R55 Syncope and collapse; I10 Essential (primary) hypertension; E78.00 Pure hypercholesterolemia, unspecified; K21.9 Gastro-esophageal reflux disease without esophagitis; K22.70 Barrett's esophagus without dysplasia; G47.33 Obstructive sleep apnea (adult) (pediatric); K76.0 Fatty (change of) liver, not elsewhere classified; R73.9 Hyperglycemia, unspecified; E66.9 Obesity, unspecified; I25.2 Old myocardial infarction; Z68.29 Body mass index [BMI] 29.0-29.9, adult; Z79.899 Other long term (current) drug therapy; Z82.49 Family history of ischemic heart disease and other diseases of the circulatory system
CPT/HCPCS: 71045; 71046; 71250; 80048; 80053; 80061; 81003; 82248; 82330; 82565; 82805; 82810; 82947; 82962; 83036; 83735; 84132; 84302; 84520; 85014; 85018; 85027; 85049; 85347; 85610; 85730; 86850; 86900; 86901; 86920; 87070; 92978; 92979; 93005; 93306; 93454; 93799; 93880; 94002; C1753; C1769; C1887; C1894; Q9967

== ENCOUNTER 2024-06-23 12:08 | Outpatient (RCR) | payer BC, SELFPAY | END 2024-06-23 23:59 | disposition home or self-care (01) | LOC: CRHB 12:08 | PROVIDERS: ATTENDING PHYSICIAN Internal Medicine | DX: I25.10 Atherosclerotic heart disease of native coronary artery without angina pectoris (principal); Z95.1 Presence of aortocoronary bypass graft; I25.2 Old myocardial infarction | CPT/HCPCS: 93797; 93798 ==

== ENCOUNTER → 2024-07-07 12:24 | Outpatient (REF) | payer BC, SELFPAY | LOC: DHSLP 12:24 | PROVIDERS: ATTENDING PHYSICIAN Internal Medicine; FAMILY PHYSICIAN Family Medicine | DX: G47.30 Sleep apnea, unspecified (principal); R06.83 Snoring | CPT/HCPCS: 95800 ==

== ENCOUNTER 2024-07-23 10:58 | Outpatient (RCR) | payer BC, SELFPAY | END 2024-07-23 23:59 | disposition home or self-care (01) | LOC: CRHB 10:58 | PROVIDERS: ATTENDING PHYSICIAN Internal Medicine Cardiovascular Disease; FAMILY PHYSICIAN Family Medicine | DX: I25.10 Atherosclerotic heart disease of native coronary artery without angina pectoris (principal); Z95.1 Presence of aortocoronary bypass graft; I25.2 Old myocardial infarction | CPT/HCPCS: 93797; 93798 ==

== ENCOUNTER 2024-08-04 17:52 | Outpatient (RCR) | payer BC, SELFPAY | END 2024-08-04 23:59 | disposition home or self-care (01) | LOC: CRHB 17:52 | PROVIDERS: ATTENDING PHYSICIAN Internal Medicine Cardiovascular Disease; FAMILY PHYSICIAN Family Medicine | DX: I25.2 Old myocardial infarction (principal); Z95.1 Presence of aortocoronary bypass graft | CPT/HCPCS: 93797; 93798 ==